=== PATIENT | female | born 1945 | race Caucasian/White ===

== ENCOUNTER → 2016-09-13 | Outpatient (CLI) | payer MEDICARE ==
[~2016-09-13] VITALS: Ht 165.1 cm; Wt 75.7 kg
[~2016-09-13] MED LIST: /DULO30CA OR; /MOXI40TA OR; ADVI200T PO; ASPI81TA3 OR; ASPI81TA85 PO; BENA25TA9 PO; CALC12502 OR; CALCIUM VITAMIN D PO; CINN500C9 PO; CITRTAB18 PO; COLC1TAB5 PO; CRES20TA OR; CRES20TA PO; DEPA250T2 PO; DEPA250T3 OR; GLIP5TAB8 PO; IBAN150T5 PO; IBUP80TA PO; Januvia PO; LANS30CA PO; LEFL1TAB4 PO; LEVA750T PO; LEVO75TA4 PO; LIDOCAINE 2% INJ 100 MG/5 ML SDV (FOR ANES.) As Ordered ONE; LITH300T2 PO; MELA10CA PO; MET; METF500T PO; MULTTAB6 PO; Metformin; NS 1,000 ML IV SCH; PANT40TA2 PO; PRED50TA PO; PREVACID PO; PROPOFOL 200 MG/20 ML VIAL As Ordered ONE; SINE25TA6 PO; SYNT50TA PO; THYROX; TYLE500T78 PO; Thyroxine PO; VENL75TA2 PO; VICO5TAB OR; VITA200016 PO; VITA500T OR; Vesicare PO; fentaNYL 100 MCG/2 ML INJECTION (J3010) As Ordered ONE
--- NOTE | 2016-09-13 10:27 | ROOR ---
Patient Name: Jayla Barrera Procedure Date: 09/13/2016 10:14 AM Date of : 1945 Age: 71 Room: OP Gender: Female Note Status: Finalized Procedure: Upper GI endoscopy Indications: Abdominal pain, Abnormal CT of the GI tract, Nausea Providers: Cristi MCELROY MD Referring MD: YESENIA PRESTON MD Requesting Provider: Medicines: Monitored Anesthesia Care Complications: No immediate complications. Procedure: Pre-Anesthesia Assessment: - The heart rate, respiratory rate, oxygen saturations, blood pressure, adequacy of pulmonary ventilation, and response to care were monitored throughout the procedure. The Endoscope was introduced through the mouth, and advanced to the third part of duodenum. The upper GI endoscopy was accomplished without difficulty. The patient tolerated the procedure well. Findings: The esophagus was normal. The stomach was normal. The examined duodenum was normal. Impression: - Normal esophagus. - Normal stomach. - Normal examined duodenum. - No specimens collected. Recommendation: - Follow an antireflux regimen. - Continue present medications. - Observe patient's clinical course. Cristi Mcelroy MD Cristi MCELROY MD 09/13/2016 10:27:32 AM This report has been signed electronically. Number of Addenda: 0 Note Initiated On: 09/13/2016 10:14 AM Estimated Blood Loss: Estimated blood loss: none.
--- NOTE | 2016-09-13 10:49 | ROOR ---
Patient Name: Jayla Barrera Procedure Date: 09/13/2016 10:16 AM Date of : 1945 Age: 71 Room: [facility] Gender: Female Note Status: Finalized Procedure: Colonoscopy Indications: Generalized abdominal pain, Change in bowel habits, Weight loss Providers: Cristi MCELROY MD Referring MD: YESENIA PRESTON MD Requesting Provider: Medicines: Monitored Anesthesia Care Complications: No immediate complications. Procedure: Pre-Anesthesia Assessment: - The heart rate, respiratory rate, oxygen saturations, blood pressure, adequacy of pulmonary ventilation, and response to care were monitored throughout the procedure. The Colonoscope was introduced through the anus and advanced to 5 cm into the ileum. The colonoscopy was performed without difficulty. The patient tolerated the procedure well. The quality of the bowel preparation was good. Findings: The perianal and digital rectal examinations were normal. (Exam: Complete, Prep: Good or Excellent.) The terminal ileum appeared normal. Five sessile polyps were found in the descending colon and at the splenic flexure. The polyps were diminutive in size. These polyps were removed with a cold snare. Resection and retrieval were complete. The exam was otherwise without abnormality. Impression: - (Exam: Complete, Prep: Good or Excellent.) - The examined portion of the ileum was normal. - Five diminutive polyps in the descending colon and at the splenic flexure, removed with a cold snare. Resected and retrieved. - The examination of the colon was otherwise normal. Recommendation: - Telephone endoscopist for pathology results in 2 weeks. - If the pathology report reveals adenomatous tissue, then repeat the colonoscopy for surveillance in 3 years. Cristi Mcelroy MD Cristi MCELROY MD 09/13/2016 10:48:56 AM This report has been signed electronically. Number of Addenda: 0 Note Initiated On: 09/13/2016 10:16 AM Estimated Blood Loss: Estimated blood loss: none.
[2016-09-13 11:12] VITALS: BP 116/6
== END | disposition home or self-care (01) ==
LOC: M OPP 09:19
PROVIDERS: ATTEND Internal Medicine Gastroenterology
DX: R10.9 Unspecified abdominal pain (principal); D12.4 Benign neoplasm of descending colon; D12.3 Benign neoplasm of transverse colon; R93.3 Abnormal findings on diagnostic imaging of other parts of digestive tract; R11.0 Nausea; E11.9 Type 2 diabetes mellitus without complications; K21.9 Gastro-esophageal reflux disease without esophagitis; G20 Parkinson's disease; M19.90 Unspecified osteoarthritis, unspecified site; E03.9 Hypothyroidism, unspecified; Z88.0 Allergy status to penicillin; Z88.5 Allergy status to narcotic agent; Z88.8 Allergy status to other drugs, medicaments and biological substances
CPT/HCPCS: 43235; 45385; 88305; J3010

== ENCOUNTER → 2016-10-03 | Outpatient (REF) | payer MEDICARE, BC ==
[~2016-10-03] MED LIST changes: -LIDOCAINE 2% INJ 100 MG/5 ML SDV (FOR ANES.) As Ordered ONE; -NS 1,000 ML IV SCH; -PROPOFOL 200 MG/20 ML VIAL As Ordered ONE; -fentaNYL 100 MCG/2 ML INJECTION (J3010) As Ordered ONE
[2016-10-03 16:40] LABS: ALBUMIN 3.9 GM/DL (3.2-5.2); ALKALINE PHOSPHATASE 35 U/L (45-117); ALT/SGPT 21 U/L (12-78); AST/SGOT 13 U/L (15-37); BLOOD UREA NITROGEN 9 MG/DL (7-18); CREATININE FOR GFR 0.81 MG/DL (0.55-1.02); GAMMA GLUTAMYLTRANSPEPTIDASE 34 U/L (5-55); GLOMERULAR FILTRATION RATE > 60.0 (>45)
[2016-10-03 16:45] LABS: BASO # 0.1 K/mm3 (0.0-0.2); BASO % 0.8 % (0.0-1.0); EOS # 0.6 K/mm3 (0.0-0.50); LYMPH # 2.6 K/mm3 (1.5-4.5); LYMPH % 28.1 % (24.0-44.0); MEAN CORPUSCULAR HEMOGLOBIN 28.9 pg (27.0-33.0); MEAN CORPUSCULAR HGB CONC 30.7 g/dl (32.0-36.5); MEAN CORPUSCULAR VOLUME 94.4 fl (80.0-96.0); MONO # 0.6 K/mm3 (0.0-0.8); MONO % 6.6 % (0.0-5.0); NEUTROPHILS # 5.2 K/mm3 (1.8-7.7); NEUTROPHILS % 56.8 % (36.0-66.0); RED CELL DISTRIBUTION WIDTH 13.5 % (11.5-14.5); WHITE BLOOD COUNT 9.2 K/mm3 (4.0-10.0)
[2016-10-03 18:46] LABS: STABLE ALKPHOS < 10 U/L
== END ==
LOC: M LABDRAW1 15:24
PROVIDERS: ATTEND Physician Assistant Medical
DX: L40.59 Other psoriatic arthropathy (principal); M54.5 Low back pain; Z51.81 Encounter for therapeutic drug level monitoring; Z79.899 Other long term (current) drug therapy; F33.2 Major depressive disorder, recurrent severe without psychotic features

== ENCOUNTER → 2016-10-15 | Outpatient (REF) | payer MEDICARE, BC ==
[2016-10-15 14:37] LABS: ALBUMIN/GLOBULIN RATIO 1.38 (1.00-1.93); ALKALINE PHOSPHATASE 40 U/L (45-117); ALT/SGPT 33 U/L (12-78); AST/SGOT 22 U/L (15-37); BILIRUBIN,DIRECT < 0.1 MG/DL (0.0-0.2); BILIRUBIN,TOTAL 0.3 MG/DL (0.2-1.0); TOTAL PROTEIN 6.9 GM/DL (6.4-8.2)
== END ==
LOC: M LABDRAW1 14:02
PROVIDERS: ATTEND Psychiatry & Neurology Psychiatry
DX: Z79.899 Other long term (current) drug therapy (principal); Z51.81 Encounter for therapeutic drug level monitoring

== ENCOUNTER 2016-12-17 13:30 | Emergency (ER) | payer BC, MEDICARE, OTHER ==
[~2016-12-17] VITALS: Ht 165.1 cm; Wt 75.7 kg
[2016-12-17] MEDS ORDERED: NORCO, ANEXSIA 5/325MG TABLET (HYDROcodone/ACETAMINOPHEN) PO ONE (13:45)
[2016-12-17] MEDS ORDERED: PERCOCET 5MG/325MG TAB PO ONE (14:00)
--- NOTE | 2016-12-17 14:52 | REP ---
CT LUMBAR SPINE WITHOUT CONTRAST: HISTORY: Trauma. COMPARISON: MR 05/28/2014. There is no disc bulge or herniation at the L1-2 level. The L1 nerves exit the neural foramina without compression. A diffuse disc bulge is present at the L2-3 level. There is minimal compression of the thecal sac. The L2 nerves exit the neural foramina without compression. A diffuse disc bulge is present at the L3-4 level. There is minimal compression of the thecal sac. There is hypertrophy of the posterior articulating facets. The L3 nerves exit the neural foramina without compression. A diffuse disc bulge is present at the L4-5 level. There is hypertrophy of the ligamenta flava and posterior articulating facets. These findings produce mild central canal stenosis. The L4 nerves exit the neural foramina without compression. A diffuse disc bulge is present at the L5-S1 level. This abuts the thecal sac. There is hypertrophy of the posterior articulating facets. The L5 nerves exit the neural foramina without compression. The L4-5 intervertebral disc is decreased in height consistent with disc degeneration. The vertebral bodies are normal in height. There is a nondisplaced fracture of the L4 spinous process. IMPRESSION: 1. Diffuse disc bulges at the L2-3 and L3-4 levels with minimal thecal sac compression. 2. Mild central canal stenosis at the L4-5 level secondary to disc bulge, ligamentous, and facet hypertrophy. 3. Diffuse disc bulge at the L5-S1 level. This abuts the thecal sac. 4. Nondisplaced fracture of the L4 spinous process. Signed by David Zarco MD 12/17/2016 02:54 P
--- NOTE | 2016-12-17 14:56 | REP ---
Pelvis/bilateral hips: Five views. History: Injury in a fall. Findings: The bony pelvic ring appears intact. No pelvic or sacral fracture is seen. AP and frog-leg views of each hip show smooth rounded femoral heads and intact hip joint spaces. No proximal femur or hip fracture is seen. There is peritrochanteric calcification and spurring of the greater trochanters bilaterally consistent with calcific tendonitis or bursitis. Impression: No fracture seen. Signed by José Luis Leroy MD 12/17/2016 06:27 P
[2016-12-17] MEDS ORDERED: PERC5TAB6 PO (15:04)
[2016-12-17 15:12] VITALS: BP 135/76
== END 2016-12-17 15:29 | disposition home or self-care (01) ==
LOC: EDBD 13:30 → M ED 15:10
DX: S32.048A Other fracture of fourth lumbar vertebra, initial encounter for closed fracture (principal); S70.01XA Contusion of right hip, initial encounter; S70.02XA Contusion of left hip, initial encounter; W01.0XXA Fall on same level from slipping, tripping and stumbling without subsequent striking against object, initial encounter; Y92.099 Unspecified place in other non-institutional residence as the place of occurrence of the external cause; Y93.9 Activity, unspecified; Y99.9 Unspecified external cause status; M51.26 Other intervertebral disc displacement, lumbar region; M51.27 Other intervertebral disc displacement, lumbosacral region; I51.9 Heart disease, unspecified; Z79.82 Long term (current) use of aspirin; Z79.899 Other long term (current) drug therapy; Z88.6 Allergy status to analgesic agent; Z88.1 Allergy status to other antibiotic agents; Z88.5 Allergy status to narcotic agent; Z88.8 Allergy status to other drugs, medicaments and biological substances; Z88.0 Allergy status to penicillin; Z88.2 Allergy status to sulfonamides

== ENCOUNTER 2016-12-22 09:04 | Inpatient (IN) | payer BC, MEDICARE, OTHER ==
[~2016-12-22] VITALS: Ht 165.1 cm; Wt 76.0 kg
[2016-12-22] MEDS: lamoTRIgine 100MG TAB PO SCH (09:00)
[~2016-12-22 09:04] MED LIST changes: +PERC5TAB6 PO
[2016-12-22] MEDS ORDERED: PREV30CA11 PO (09:40)
[2016-12-22] MEDS ORDERED: LAMO100T (09:40)
[2016-12-22] MEDS ORDERED: LAMO25TA2 (09:40)
[2016-12-22] MEDS ORDERED: VIIB10TA (09:40)
[2016-12-22] MEDS ORDERED: KLON0.5T (09:40)
[2016-12-22] MEDS ORDERED: TOLT1CAP (09:40)
[2016-12-22] MEDS ORDERED: MORPHINE 4 MG/ML 1ML SYRINGE IV ONE (09:45)
[2016-12-22 10:47] LABS: BASO % 0.4 % (0.0-1.0); EOS # 0.4 K/mm3 (0.0-0.50); EOS % 5.4 % (0.0-3.0); LARGE UNSTAINED CELL # 0.1 K/mm3 (0.0-0.4); LARGE UNSTAINED CELL % 1.9 % (0.0-4.0); LYMPH # 1.7 K/mm3 (1.5-4.5); LYMPH % 21.7 % (24.0-44.0); MEAN CORPUSCULAR HEMOGLOBIN 28.7 pg (27.0-33.0); MEAN CORPUSCULAR VOLUME 92.7 fl (80.0-96.0); MONO # 0.6 K/mm3 (0.0-0.8); MONO % 7.4 % (0.0-5.0); NEUTROPHILS # 4.7 K/mm3 (1.8-7.7); NEUTROPHILS % 63.2 % (36.0-66.0); PLATELET COUNT, AUTOMATED 289 k/mm3 (150-450); RED CELL DISTRIBUTION WIDTH 13.8 % (11.5-14.5); WHITE BLOOD COUNT 7.4 K/mm3 (4.0-10.0)
[2016-12-22 11:18] LABS: ALBUMIN 3.2 GM/DL (3.2-5.2); ALBUMIN/GLOBULIN RATIO 0.89 (1.00-1.93); ALKALINE PHOSPHATASE 56 U/L (45-117); ALT/SGPT 22 U/L (12-78); ANION GAP 7 MEQ/L (8-16); AST/SGOT 16 U/L (15-37); BILIRUBIN,DIRECT < 0.1 MG/DL (0.0-0.2); BILIRUBIN,TOTAL 0.2 MG/DL (0.2-1.0); BLOOD UREA NITROGEN 13 MG/DL (7-18); CALCIUM LEVEL 8.1 MG/DL (8.8-10.2); CARBON DIOXIDE LEVEL 27 MEQ/L (21-32); CHLORIDE LEVEL 106 MEQ/L (98-107); CREATININE FOR GFR 0.78 MG/DL (0.55-1.02); GLOMERULAR FILTRATION RATE > 60.0 (>45); GLUCOSE, FASTING 101 MG/DL (80-110); POTASSIUM SERUM 3.8 MEQ/L (3.5-5.1); SODIUM LEVEL 140 MEQ/L (136-145); TOTAL PROTEIN 6.8 GM/DL (6.4-8.2)
[2016-12-22] MEDS ORDERED: ISOVUE-370 76% 100ML VIAL (Q9967) As Ordered ONE (11:39)
[2016-12-22 12:01] LABS: LITHIUM LEVEL < 0.20 MEQ/L (0.60-1.20)
--- NOTE | 2016-12-22 12:21 | REP ---
CT of the abdomen and pelvis with IV contrast. There is opaque material. Some of the small bowel loops. This could be a oral contrast and could merely be ingested material. Comparison 08/17/2016. There is a tiny parenchymal scar in the deep posterior sulcus of the right lung, unchanged from 12/01/2011. The hepatic parenchyma is diffusely less dense than the spleen compatible with hepato steatosis. The liver is otherwise unremarkable. The gallbladder, pancreas and spleen are unremarkable. The adrenals, kidneys and abdominal aorta are unremarkable. There is no bowel obstruction. The mesentery is unremarkable. Pelvis: The appendix is not identified. There is no pericecal inflammation. The uterus and adnexa are unremarkable. The bladder is unremarkable. There is no adenopathy or ascites. The pelvic bowel loops are unremarkable. Impression: Essentially negative CT study of the abdomen and pelvis. Signed by Willie Redd MD 12/22/2016 12:13 P
[2016-12-22] MEDS ORDERED: MAGNESIUM CITRATE 300 ML BTL PO ONE ×2 (12:30→14:00)
[2016-12-22] MEDS ORDERED: KETOROLAC 30 MG/ML VIAL (J1885) IV ONE (12:30)
[2016-12-22] MEDS ORDERED: clonazePAM 0.5 MG TAB PO ONE (14:00)
[2016-12-22] MEDS ORDERED: TOLT1CAP PO (16:00)
[2016-12-22] MEDS ORDERED: DIVA250T PO (16:00)
[2016-12-22] MEDS ORDERED: VIIB10TA PO (16:00)
[2016-12-22] MEDS ORDERED: ACETAMINOPHEN TAB 650MG DOSE (2X325MG) PO PRN (16:00)
[2016-12-22] MEDS ORDERED: GLIP-162 PO (16:00)
[2016-12-22] MEDS ORDERED: LAMO100T PO (16:00)
[2016-12-22] MEDS ORDERED: CLON0.5T PO (16:01)
[2016-12-22] MEDS ORDERED: METO25TA74 PO (16:02)
[2016-12-22] MEDS ORDERED: TRAZ25TA PO (16:02)
[2016-12-22] MEDS ORDERED: VITMTA PO (16:04)
[2016-12-22] MEDS ORDERED: GLUCOSE 4 GM CHEW TABLET PO PRN (16:15)
[2016-12-22] MEDS ORDERED: DEXTROSE 50% 50 ML SYRINGE IV PRN (16:15)
[2016-12-22] MEDS ORDERED: GLUCAGON FOR INJ 1 MG VIAL (J1610) SC PRN (16:15)
--- NOTE | 2016-12-22 17:20 | REPUSA ---
CT of the lumbar spine without contrast Clinical history: Pain, recent fracture. Technique: Multiple axial CT images were obtained through the lumbar spine without administration of contrast. Coronal and sagittal 3-D reconstructed images were also obtained. Comparison: 12/17/2016. Findings: The lumbar vertebral bodies are in satisfactory positioning and alignment. There is a subacute trans verse fracture of the spinous process of L4. There is a subacute anterior compression abnormality of T12, with minimal loss of vertebral body height. This is stable since the prior study. No other acu te fractures or dislocations are demonstrated. Intervertebral disc spaces are well-maintained. There is no evidence of facet subluxation. The neural foramen appear grossly patent. The spinal canal demon strates normal caliber and contour without evidence of spinal stenosis. The surrounding soft tissues are within normal limits. Impression: 1. Subacute mild anterior compression fracture of T12. 2. Sub acute nondisplaced fracture of the spinous process of L4. 3. No acute findings. Grossly stable examination.
[2016-12-22] MEDS: HumaLOG INSULIN (NovoLOG) PER UNIT SC SCH ×2 (17:30→21:00)
[2016-12-22] MEDS ORDERED: MIRALAX *UNIT DOSE* 17GM PACKET PO PRN (17:30)
[2016-12-22 18:00] VITALS: BP 137/79
[2016-12-22] MEDS: MORPHINE 2 MG/ML 1ML SYRINGE IV PRN (18:20)
--- NOTE | 2016-12-22 18:24 | HPE ---
DATE OF ADMISSION: 12/22/2016 PRIMARY CARE PROVIDER: Dr. Ian Mccall. NEUROLOGIST: Dr. Armstrong. PSYCHIATRIST: Dr. Cunha. CHIEF COMPLAINT: Back pain. HISTORY OF PRESENT ILLNESS: Ms. Barrera is a pleasant 71-year-old female with history of Parkinson's disease, psoriatic arthritis, who presented to the emergency department (ED) today with complaint of low back pain. Pain started five days ago after sustaining a fall at home. She was doing laundry in her bathroom and because of her baseline tremor from her Parkinson's, she turned around, lost balance and fell back into her wooden chair. Immediately experience excruciating low back pain. Denies any chest pain, palpitations, dizziness, lightheadedness, syncopal episode. She was then brought into the emergency room (ER) on 12/17/2016. At that time, CT lumbar spine showed nondisplaced fracture of L4 spinous process. She was then sent home with pain medication. States that since her discharge from the ER, her pain was relatively tolerable with pain control and was able to ambulate without significant distress until approximately two days ago when her pain worsened. However, this morning her pain was particularly severe to the point that she had difficulty getting out of bed. Because of worsening pain, she was brought in for further evaluation. Denied any bowel or urinary incontinence, bowel or urinary retention, vaginal or any paresthesia. Reports weakness which is chronic due to her baseline Parkinson's disease. Also admits that since being on narcotics, she feels more constipated. Has gone approximately 3-4 days without bowel movement and took some milk of magnesia yesterday. Since taking her stool softener, her bowel movement has increased, though she still feels constipated and bloated to her abdomen. In the ER, was given ketorolac times one, magnesium citrate, clonazepam, morphine 4 mg times one. PAST MEDICAL HISTORY: 1. Parkinson's disease. 2. Type 2 diabetes. 3. Hypothyroidism. 4. Gastroesophageal reflux disease (GERD). 5. Obstructive sleep apnea (GUME) not compliant with continuous positive airway pressure (CPAP) for the last three years. 6. Psoriatic arthritis. 7. Depression. 8. Hyperlipidemia. 9. Hypertension. 10. Anxiety 11. Panic attacks. 12. Tubular adenoma, September 2016. 13. Bipolar disorder. PAST SURGICAL HISTORY: 1. Right ankle surgery. 2. Right knee surgery. 3. Right arm surgery. 4. Colonoscopy September 2016. ALLERGIES: 1. PENICILLIN - anaphylaxis. 2. DARVON. 3. SULFA. 4. HYDROCODONE. 5. PERCODAN. 6. TRAMADOL. 7. CODEINE, though the patient did receive morphine and Percocet with recent visits without any adverse reaction. HOME MEDICATIONS: - aspirin 81 mg by mouth at bedtime - clonazepam 0.5 mg by mouth twice a day - Benadryl 50 mg by mouth at bedtime - Depakote 500 mg by mouth twice a day - glipizide 5 mg by mouth daily - lamotrigine 100 mg by mouth daily - Prevacid 30 mg by mouth at bedtime - leflunomide 20 mg by mouth daily - Synthroid 75 mcg by mouth daily - melatonin 10 mg at bedtime - metformin 1000 mg by mouth twice a day - metoprolol succinate ER 12.5 mg at bedtime - multivitamin - Percocet 5/325 mg two tablets every six hours as needed - Crestor 20 mg by mouth daily - tolterodine tartrate 4 mg by mouth twice a day - trazodone 25 mg by mouth at bedtime - Viibryd 10 mg by mouth daily - vitamin D 2000 units by mouth daily FAMILY HISTORY: Father at 45 from a myocardial infarction ([place]). Mother is alive with Alzheimer's disease. SOCIAL HISTORY: She is a nonsmoker. Does not drink alcohol. No drug use. Currently lives at home with her . Lifetime travel includes [place], [place], and [place]. 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 No exposure to tuberculosis or asbestos that she is aware of. Has one dog at home. REVIEW OF SYSTEMS: CONSTITUTIONAL: Denies fevers, chills, rigors, weight changes. HEENT: Denies headaches, lightheadedness, dizziness, blurry vision, difficulty with speech and swallow. CARDIOVASCULAR: Denies chest pain, paroxysmal nocturnal dyspnea, pillow orthopnea, lower extremity edema. PULMONARY: Denies shortness of breath, productive cough, hemoptysis. GASTROINTESTINAL: Denies hematochezia, melena, or hematemesis, nausea, vomiting. Positive for constipation as mentioned. GENITOURINARY: No dysuria, urinary urgency, frequency or hematuria. No bladder incontinence. MUSCULOSKELETAL: Positive for back pain as mentioned above. NEUROLOGICAL: No paralysis, paresthesia, headaches. No syncopal episode. Has Parkinson's. ENDOCRINE: Negative for diabetes, or thyroid disease. LYMPHATICS: No lumps, bumps, or swelling anywhere in neck, axilla, or groin. HEMATOLOGY: No abnormal bleeding or bruising. PSYCHIATRIC: Positive for bipolar disorder, anxiety, depression. RHEUMATOLOGIC: Positive for arthritis. PHYSICAL EXAMINATION: VITAL SIGNS: Blood pressure 136/65, heart rate 96, temperature 98.3, respiratory rate 16, pulse oximetry 94% on room air. GENERAL: Lying in bed, comfortable, no acute distress, appears pale but per patient and , this is her normal skin tone. HENT: Normocephalic, atraumatic. Moist oral mucosa. Good dentition considering age. No thrush or lesions appreciated. Nasal septum midline. EYES: Extraocular movement intact. Pupils equal and reactive to light. NECK: Supple. Trachea midline. No jugular venous distention (JVD). No thyromegaly or lymphadenopathy palpated. CHEST: Symmetric chest rise. No accessory muscle use. Breath sounds were diminished but clear bilaterally. HEART: Regular rate and rhythm with normal S1, S2. Did not appreciate murmurs, rubs, or gallops. ABDOMEN: Protuberant, mildly distended, diffusely tender to palpation, most significant in her left lower quadrant. No guarding, no rebound, no peritoneal sign. Bowel sounds are present and normoactive. Could not appreciate organomegaly secondary to body habitus and protuberant abdomen. GENITOURINARY: Has good rectal tone. No obvious hemorrhoids, mass or lesions appreciated. EXTREMITIES: No pedal edema. Pedal pulses present bilaterally. SKIN: No obvious areas of cyanotic mottling or erythematous changes. NEUROLOGIC: Strength 5/5 in all extremities. Sensory intact. Negative Babinski sign. Did not assess gait. Cranial nerves II through XII intact. She did have tremor on examination. PSYCHIATRIC: Pleasant, cooperative. Normal affect. LABORATORY DATA: WBC 7.4, hemoglobin 12, hematocrit 38.7, platelets 289. Sodium 140, potassium 3.8, chloride 106, carbon dioxide 27, BUN 13, creatinine 0.78, glucose 101, calcium 8.1. Liver profile normal, lipase normal. Valproic acid level 27. Myra level less than 0.2. Lamotrigine level pending. MICROBIOLOGY: Urine culture pending. Urinalysis trace ketones, 3+ leukocyte esterase, 20 WBC. IMAGING: CT abdomen and pelvis reports no bowel obstruction. Mesentery unremarkable. Essentially negative CT abdomen and pelvis. IMPRESSION AND PLAN: Ms. Barrera is a pleasant 71-year-old female with past medical history of Parkinson's disease, recently sustained mechanical fall at home, previously found to have nondisplaced L4 spinous fracture who presented to the ED today with worsening back pain. 1. Low back pain. Likely secondary to fracture that was found on previous CT. In review of prior visit, she did have CT lumbar spine without contrast performed on 12/17/2016; at that time showed nondisplaced fracture of L4 spinous process. The patient will be admitted for further management of her pain. The patient will be placed on Tylenol, oxycodone, and morphine as needed. Though there is an allergy to codeine, she previously received Percocet and also morphine without any adverse effect. Consult physical therapy. Because of her worsening pain, we have repeated CT lumbar spine without contrast to reevaluate for any change to her previous nondisplaced fracture of L4. If her symptoms do not improve with our current management, we will consider consulting pain management for assistance. At this time, she has no concerning signs. We will also add calcitonin spray as it might help providing analgesic effect to her pain. 2. Hypertension. Continue Toprol XL 12.5 mg at bedtime. 3. Hyperlipidemia. Continue Crestor 20 mg daily. 4. Type 2 diabetes. Hold home oral hypoglycemics. Will start insulin sliding scale while inpatient due to risk of hypoglycemia. 5. Constipation. The patient will be placed on a bowel regimen as she will be on multiple narcotics for her back pain. 6. Hypothyroidism. Continue levothyroxine. 7. Anxiety/depression. Continue home dose clonazepam and Viibryd. 8. Bipolar disorder. Continue home dose lamotrigine, Depakote. 9. Arthritis. Continue leflunomide home medication. 10. History of overactive bladder. Continue home dose tolterodine. 11. Gastroesophageal reflux disease (GERD). Continue home does Prevacid. 12. Insomnia. Continue home dose trazodone as needed. She can take her home does melatonin. 13. Vitamin D deficiency. Continue vitamin D supplementation. 14. GUME. Has not used her CPAP machine for the last 2-3 years. Will be placed on GUME protocol. 15. Deep venous thrombosis (DVT) prophylaxis. Sequential compression devices (SCDs), thromboembolism deterrent stockings (TEDs) and heparin. DISPOSITION: Due to the patient's condition, we expect her stay to be greater than two midnights. My preceptor for this patient encounter was Dr. Juan Grover. The preceptor was physically present in the building during the encounter and was fully available as needed. All aspects of the patient interview, examination, medical decision making process, and medical care plan development were reviewed and approved by the preceptor. The preceptor is aware and concurs with the plan as stated in the body of this note and will attest to such by his/her co-signature. JOHN
[2016-12-22] MEDS: MULTIVITAMINS/MINERALS THERAP 1 TAB PO SCH (21:34)
[2016-12-22] MEDS: DIVALPROEX 500 MG TAB PO SCH (21:34)
[2016-12-22] MEDS: clonazePAM 0.5 MG TAB PO SCH (21:35)
[2016-12-22] MEDS: PANTOPRAZOLE 40MG TAB (PROTONIX) PO SCH (21:35)
[2016-12-22] MEDS: ASPIRIN 81 MG ENTERIC TAB PO SCH (21:35)
[2016-12-22] MEDS: SENNA 8.6 MG TAB (SENOKOT) PO SCH (21:35)
[2016-12-22] MEDS: TOLTERODINE TARTRATE 2 MG LA CAP (DETROL LA) PO SCH (21:35)
[2016-12-22] MEDS: SENOKOT S TAB PO SCH (21:36)
[2016-12-22] MEDS: METOPROLOL SUCC *XL* 12.5MG PER 1/2 TAB (TopROL *XL*) PO SCH (21:37)
[2016-12-22] MEDS: HEPARIN SOD (PORCINE) 5000 UNITS/ML VIAL SC SCH (21:42)
[2016-12-22] MEDS: traZODone 25MG PER 1/2 TABLET PO PRN (21:42)
[2016-12-22] MEDS: oxyCODONE 5MG TAB PO PRN (21:43)
[2016-12-22 22:00] VITALS: BP 144/78
[2016-12-23] MEDS: HEPARIN SOD (PORCINE) 5000 UNITS/ML VIAL SC SCH ×3 (05:26→22:08)
[2016-12-23] MEDS: LEVOTHYROXINE 0.075 MG TAB (75 MCG) PO SCH (05:26)
[2016-12-23] MEDS: MORPHINE 2 MG/ML 1ML SYRINGE IV PRN ×6 (05:27→22:12)
[2016-12-23 06:00] VITALS: BP 154/83
[2016-12-23 06:03] LABS: MEAN CORPUSCULAR HEMOGLOBIN 29.9 pg (27.0-33.0); MEAN CORPUSCULAR HGB CONC 32.1 g/dl (32.0-36.5); MEAN CORPUSCULAR VOLUME 93.1 fl (80.0-96.0); RED CELL DISTRIBUTION WIDTH 13.7 % (11.5-14.5); WHITE BLOOD COUNT 6.9 K/mm3 (4.0-10.0)
[2016-12-23 06:28] LABS: ALBUMIN 3.2 GM/DL (3.2-5.2); ANION GAP 8 MEQ/L (8-16); BLOOD UREA NITROGEN 16 MG/DL (7-18); CARBON DIOXIDE LEVEL 29 MEQ/L (21-32); CHLORIDE LEVEL 106 MEQ/L (98-107); GLOMERULAR FILTRATION RATE > 60.0 (>45); GLUCOSE, FASTING 83 MG/DL (80-110); PHOSPHORUS LEVEL 3.6 MG/DL (2.5-4.9); POTASSIUM SERUM 4.1 MEQ/L (3.5-5.1); SODIUM LEVEL 143 MEQ/L (136-145)
[2016-12-23] MEDS: HumaLOG INSULIN (NovoLOG) PER UNIT SC SCH ×4 (07:30→21:00)
[2016-12-23] MEDS: oxyCODONE 5MG TAB PO PRN ×2 (07:55→13:16)
[2016-12-23] MEDS: ROSUVASTATIN 10 MG TAB (CRESTOR) PO SCH (08:08)
[2016-12-23] MEDS: TOLTERODINE TARTRATE 2 MG LA CAP (DETROL LA) PO SCH ×2 (08:08→22:11)
[2016-12-23] MEDS: DIVALPROEX 500 MG TAB PO SCH ×2 (08:08→22:10)
[2016-12-23] MEDS: clonazePAM 0.5 MG TAB PO SCH ×2 (08:09→22:10)
[2016-12-23] MEDS: SENOKOT S TAB PO SCH ×2 (08:09→22:10)
[2016-12-23] MEDS: SENNA 8.6 MG TAB (SENOKOT) PO SCH ×2 (08:09→22:09)
[2016-12-23] MEDS: MOM 30ML SUSPENSION UDC PO SCH (08:10)
[2016-12-23] MEDS: VITAMIN D 1,000 INTERNATIONAL UNITS TABLET PO SCH (08:10)
[2016-12-23] MEDS: lamoTRIgine 100MG TAB PO SCH (08:10)
[2016-12-23] MEDS: CALCITONIN NASAL SPRAY 3.7 ML BTL SCH (08:11)
[2016-12-23] MEDS ORDERED: LORazepam 2 MG/ML VIAL (J2060) IV ONE (13:00)
--- NOTE | 2016-12-23 13:17 | IPNPDOC ---
Text Note Date of Service The patient was seen on 12/23/16. NOTE Subjective: Patient states that he still has lumbar pain. No changes in bladder or bowel. No new weakness. No sensory changes. Objective: Vitals: (see below) General: No acute distress, laying comfortably in bed. HEENT: Moist mucous membranes. Neck: No JVD or lymphadenopathy Cardiac: RRR, No murmurs Pulm: Clear to auscultation b/l. No wheezing, rhonchi Abd: NT/ND + BS Ext: No edema or cyanosis. 5-5 strength bilateral lower shortness. Sensation intact. Negative Babinski bilaterally. Labs (see below) Images: Lumbar CT 12/22/16 Findings: The lumbar vertebral bodies are in satisfactory positioning and alignment. There is a subacute transverse fracture of the spinous process of L4. There is a subacute anterior compression abnormality of T12, with minimal loss of vertebral body height. This is stable since the prior study. No other acute fractures or dislocations are demonstrated. Intervertebral disc spaces are well- maintained. There is no evidence of facet subluxation. The neural foramen appear grossly patent. The spinal canal demonstrates normal caliber and contour without evidence of spinal stenosis. The surrounding soft tissues are within normal limits. Impression: 1. Subacute mild anterior compression fracture of T12. 2. Sub acute nondisplaced fracture of the spinous process of L4. 3. No acute findings. Grossly stable examination. CT Abd/pelvis 12/22/16 Impression:Essentially negative CT study of the abdomen and pelvis. Assessment/Plan 1. Subacute anterior compression fracture of T12 as well as subacute nondisplaced fracture spinous processes of L4- status post mechanical fall. We' ll place patient abdominal binder. Neuro checks. We will obtain thoracic and lumbar MRI, and discuss results with ortho. Pain control. Physical therapy. 2. Hypertension- controlled continue home meds 3. Diabetes mellitus- oral agents on hold. On SSI 4. Hyperlipidemia -on statin 5. Constipation improved. Likely secondary to necrotic. 6. Hypothyroidism- on Synthroid 7. Anxiety/depression- on clonazepam 8. Bipolar disorder- continue home meds 9. Rheumatoid arthritis- on the leflunomide 10. GERD- on PPI 11. Insomnia- on trazodone as needed 12. Vitamin D- on replacement DVT prophy: SCDs/heparin subcutaneous VS,Fishbone, I+O VS, Fishbone, I+O Laboratory Tests 12/23/16 05:11 Anion Gap 8, Red Blood Count 4.16, Mean Corpuscular Volume 93.1, Mean Corpuscular Hemoglobin 29.9, Mean Corpuscular Hemoglobin Concent 32.1, Red Cell Distribution Width 13.7 Vital Signs Date Time Temp Pulse Resp B/P Pulse Ox O2 Delivery O2 Flow Rate FiO2 12/23/16 11:53 16 12/23/16 06:00 97.8 90 154/83 90 Room Air I&O- Last 24 Hours up to 6 AM 12/23/16 06:00 Intake Total 480 ml Output Total 0 ml Balance 480 ml MARIO PATRICK MD Dec 23, 2016 13:17
[2016-12-23 14:00] VITALS: BP 158/87
[2016-12-23 22:00] VITALS: BP 145/82
[2016-12-23] MEDS: ASPIRIN 81 MG ENTERIC TAB PO SCH (22:10)
[2016-12-23] MEDS: METOPROLOL SUCC *XL* 12.5MG PER 1/2 TAB (TopROL *XL*) PO SCH (22:10)
[2016-12-23] MEDS: MULTIVITAMINS/MINERALS THERAP 1 TAB PO SCH (22:10)
[2016-12-23] MEDS: PANTOPRAZOLE 40MG TAB (PROTONIX) PO SCH (22:10)
[2016-12-24] MEDS: MORPHINE 2 MG/ML 1ML SYRINGE IV PRN ×3 (00:36→10:37)
[2016-12-24] MEDS: oxyCODONE 5MG TAB PO PRN ×3 (01:47→18:01)
[2016-12-24] MEDS: LEVOTHYROXINE 0.075 MG TAB (75 MCG) PO SCH (05:54)
[2016-12-24] MEDS: HEPARIN SOD (PORCINE) 5000 UNITS/ML VIAL SC SCH ×3 (05:55→21:14)
[2016-12-24 06:00] VITALS: BP 162/85
[2016-12-24 06:56] LABS: MEAN CORPUSCULAR HGB CONC 30.8 g/dl (32.0-36.5); MEAN CORPUSCULAR VOLUME 94.2 fl (80.0-96.0); RED CELL DISTRIBUTION WIDTH 13.7 % (11.5-14.5); WHITE BLOOD COUNT 7.3 K/mm3 (4.0-10.0)
[2016-12-24] MEDS ORDERED: GASTROGRAFIN SOLUTION 30ML PO ONE (07:00)
[2016-12-24 07:05] LABS: ALBUMIN 3.1 GM/DL (3.2-5.2); ANION GAP 8 MEQ/L (8-16); BLOOD UREA NITROGEN 12 MG/DL (7-18); CALCIUM LEVEL 8.7 MG/DL (8.8-10.2); CARBON DIOXIDE LEVEL 28 MEQ/L (21-32); CHLORIDE LEVEL 106 MEQ/L (98-107); GLOMERULAR FILTRATION RATE > 60.0 (>45); GLUCOSE, FASTING 99 MG/DL (80-110); PHOSPHORUS LEVEL 3.9 MG/DL (2.5-4.9); SODIUM LEVEL 142 MEQ/L (136-145)
[2016-12-24] MEDS: HumaLOG INSULIN (NovoLOG) PER UNIT SC SCH ×4 (07:30→21:00)
[2016-12-24] MEDS ORDERED: GASTROGRAFIN SOLUTION 30ML (Q9963) PO ONE (07:30)
--- NOTE | 2016-12-24 07:45 | REP ---
MR LUMBAR SPINE WITHOUT CONTRAST: HISTORY: Vertebral body fracture. COMPARISON: CT 12/22/2016. There are six lumbar-type vertebral bodies. Decreased signal intensity on T2-weighted images is present in the lumbar intervertebral discs. The L3-4 through L5-6 intervertebral discs are decreased in height. These findings are consistent with disc degeneration. There is no disc bulge or herniation at the L1-2 through L4-5 intervertebral discs. There is hypertrophy of the posterior articulating facets at the L4-5 level. The nerves exit the neural foramina without compression. A diffuse disc bulge is present at the L5-6 level. There is hypertrophy of the ligamenta flava and posterior articulating facets. These findings produce minimal central canal stenosis. The L5 nerves exit the neural foramina without compression. A diffuse disc bulge is present at the L6-S1 level. There is no thecal sac or nerve compression. There is hypertrophy of the posterior articulating facets. The L6 nerves exit the neural foramina without compression. Heterogeneous increased signal intensity on T2-weighted images is present in the L1 vertebral body. A curvilinear area of decreased signal intensity is present in the superior endplate region. These findings are consistent with an acute fracture. There is very minimal loss of vertebral body height. There is no subluxation. IMPRESSION: 1. Minimal central canal stenosis at the L5-6 level secondary to disc bulge, ligamentous and facet hypertrophy. 2. Diffuse disc bulge at the L6-S1 level without thecal sac or nerve compression. 3. Acute L1 compression fracture with very minimal height loss. Signed by David Zarco MD 12/24/2016 08:25 A
--- NOTE | 2016-12-24 07:46 | REP ---
MR THORACIC SPINE WITHOUT CONTRAST: HISTORY: T12 fracture. There is no disc bulge or herniation. The spinal canal and neural foramina are patent. Increased signal intensity on T2-weighted images is present in the L1 vertebral body. There is very minimal loss of vertebral body height. A curvilinear area of decreased signal intensity is present in the superior endplate region. These findings are consistent with an acute fracture. There is no subluxation. Normal signal intensity is present in the thoracic vertebral bodies. IMPRESSION: 1. There is no disc bulge or herniation. 2. Acute compression fracture of the L1 vertebral body with very minimal height loss. Signed by David Zarco MD 12/24/2016 08:10 A
[2016-12-24] MEDS: clonazePAM 0.5 MG TAB PO SCH ×2 (09:20→21:14)
[2016-12-24] MEDS: ROSUVASTATIN 10 MG TAB (CRESTOR) PO SCH (09:20)
[2016-12-24] MEDS: MOM 30ML SUSPENSION UDC PO SCH (09:20)
[2016-12-24] MEDS: DIVALPROEX 500 MG TAB PO SCH ×2 (09:20→21:14)
[2016-12-24] MEDS: VITAMIN D 1,000 INTERNATIONAL UNITS TABLET PO SCH (09:21)
[2016-12-24] MEDS: lamoTRIgine 100MG TAB PO SCH (09:21)
[2016-12-24] MEDS: SENNA 8.6 MG TAB (SENOKOT) PO SCH ×2 (09:21→21:00)
[2016-12-24] MEDS: TOLTERODINE TARTRATE 2 MG LA CAP (DETROL LA) PO SCH ×2 (09:21→22:07)
[2016-12-24] MEDS: SENOKOT S TAB PO SCH ×2 (09:21→21:00)
[2016-12-24] MEDS: CALCITONIN NASAL SPRAY 3.7 ML BTL SCH (09:23)
[2016-12-24] MEDS ORDERED: ISOVUE-370 76% 100ML VIAL (Q9967) As Ordered ONE (10:16)
--- NOTE | 2016-12-24 11:46 | REP ---
LUMBAR SPINE, FIVE VIEWS: HISTORY: L1 fracture. COMPARISON: CT 12/22/2016. There are six lumbar-type vertebral bodies. There is an acute fracture of the superior endplate of the L1 vertebral body with very minimal height loss. There is no subluxation. The L3-4 through L5-6 intervertebral discs are decreased in height consistent with disc degeneration. Osteophytes are present on L3 through 6. There is narrowing of the L4-5 and L5-S1 facet joints with associated sclerosis. There is a fracture of the L5 spinous process that appears old. IMPRESSION: 1. Acute fracture of the superior endplate of the L1 vertebral body with minimal height loss. 2. Degenerative change, as described above. Signed by David Zarco MD 12/24/2016 11:53 A
--- NOTE | 2016-12-24 13:38 | REP ---
CT ABDOMEN AND PELVIS WITH CONTRAST: TECHNIQUE: Axial contrast enhanced images from the lung bases to the pubic symphysis using 100 mL Isovue 370 intravenous contrast material with multiplanar reformations. The visualized lung bases demonstrate minor fibroatelectatic change. Liver, spleen, adrenals, pancreas and kidneys are essentially unremarkable. There is no hydronephrosis. Tiny cyst is seen in the upper pole of the left kidney. There is no abdominal aortic aneurysm. No adenopathy is seen. There is no free air or free fluid. No bowel wall thickening is seen. There is no evidence of bowel obstruction. No pelvic mass is seen. Uterus is deviated to the left of midline. Urinary bladder appears unremarkable. Compression deformity is again noted of the T12 vertebral body unchanged since the prior CT of 12/22/2016. IMPRESSION: No acute abnormalities, with no change since prior study of 12/22/2016. No free air or free fluid. No evidence of bowel obstruction. Compression deformity again noted of T12 vertebral body. Signed by Willie Naidu MD 12/24/2016 08:09 P
[2016-12-24] MEDS: VIIBRYD 10 MG PO SCH (13:53)
[2016-12-24 14:00] VITALS: BP 126/76
--- NOTE | 2016-12-24 14:41 | IPN ---
DATE OF VISIT: 12/24/2016 SUBJECTIVE: This is a 71-year-old female who was seen and examined at bedside. Yesterday, she underwent MR lumbar spine and was found to have acute L1 compression fracture. Was reporting worsening abdominal pain overnight and was planned for abdominal CT repeat this morning. Because of her persistent worsening pain, her medications were adjusted. This morning, feels that her pain is somewhat better controlled. Abdominal pain is somewhat improved after multiple bowel movements. Since midnight, she was nothing by mouth due to pending imaging. Denies any chest pain, shortness of breath, nausea, vomiting, diarrhea, constipation, fevers, chills. OBJECTIVE: Vital signs: Blood pressure 162/85, heart rate 75, temperature 98.7, respiration rate 18, pulse oximetry 93% on 2 liters nasal cannula. Intake and output the last 24 hours: 1450. Output is not accurately documented. Weight is 87.5 kg built-in bed scale. General: She is lying in bed, comfortable. No acute pulmonary or psychiatric distress. She is alert, awake, oriented times three. Pleasant and cooperative. at bedside. HEENT: Normocephalic, atraumatic. Moist oral mucosa. Good dentition. No thrush or lesions. Nasal septum midline. Wearing nasal prongs. Eyes: Extraocular movement intact. Pupils equal and reactive to light. Neck supple. Trachea midline. No jugular venous distention (JVD). No palpable thyromegaly or lymphadenopathy. Chest: Symmetric chest rise. No accessory muscle use. Breath sounds were diminished bilaterally anteriorly. Heart: Regular rate and rhythm with normal S1, S2. Did not appreciate murmurs, rubs, or gallops. Abdomen is protuberant, mildly tender to palpation in left lower quadrant. No guarding. No rebound. No peritoneal signs. Bowel sounds present and active. Could not appreciate organomegaly secondary to body habitus. Extremities: No pedal edema. Pedal pulses present bilaterally. Skin: Without area of cyanosis, mottling, or redness. Neurologic: Strength 4/5 bilateral lower extremity due to pain. Sensory intact. Negative Babinski. Cranial nerves II-XII grossly intact. Some tremor on examination, which is chronic due to Parkinson disease. Psychiatric: Normal affect. LABORATORY DATA: WBC 7.3, hemoglobin 12, hematocrit 38.9, platelets 333. Sodium 142, potassium 4, chloride 106, carbon dioxide 28, BUN 12, creatinine 0.7 , glucose 99, calcium 8.7, phosphorus 3.9, lactic acid normal. Lamotrigine level is pending. Valproic acid is 26.9. Munday is less than 0.2. Fingerstick glucose ranges anywhere from 98-139. Urine culture negative. Thoracic lumbar spine shows acute compression fracture of L1 vertebral body with minimal height loss. Lumbar MRI showed minimal central canal stenosis at L5-6 secondary to disc bulge, ligamentous and facet hypertrophy. Diffuse disc bulge at L6-S1 level without thecal sac or nerve compression. Acute L1 compression fracture with very minimal height loss. IMPRESSION AND PLAN: Ms. Barrera is a pleasant 71-year-old female, past medical history of Parkinson disease, presented for back pain, found to have nondisplaced L4 spinous fracture on CT, underwent MRI which also showed evidence of L1 compression fracture. 1. Low back pain secondary to L1 compression fracture. Because of this acute fracture, we have consulted orthopedic for assistance. Continue neuro check every 4. Have adjusted her pain control and also consult pain management for assistance. We will change her activity to bedrest for now and physical therapy pending evaluation by orthopedics and her severe pain. 2. Hypertension. She is on her home dose of Toprol XL 12.5 mg nightly. 3. Hyperlipidemia. Continue Crestor 20 mg daily. 4. Type 2 diabetes. Continue insulin sliding scale. Her fingersticks have been reasonable. 5. Abdominal pain. Etiology unclear. Her CT on admission was unrevealing. However, because of her persistent symptoms, a repeat CT scan has been ordered, and this is pending at this time. She is on a bowel regimen due to her narcotics for her back pain. 6. Hypothyroidism. Continue levothyroxine. 7. Anxiety and depression. Continue home dose of clonazepam and Viibryd. 8. Bipolar disorder. Continue Depakote, lamotrigine. 9. Arthritis. Continue home medication. 10. History of overactive bladder. Continue home dose medication. 11. Gastroesophageal reflux disease (GERD). Continue home dose Prevacid. 12. Insomnia. Continue trazodone as needed. 13. Obstructive sleep apnea (GUME). Continue GUME protocol. Monitor her symptoms closely because she is on multiple narcotics and also benzodiazepine. 14. Vitamin D deficiency. Continue vitamin D supplementation. 15. Deep venous thrombosis (DVT) prophylaxis. Sequential compression devices (SCDs), thromboembolism deterrent stockings (TEDs), and heparin. My preceptor for this patient encounter was Dr. Tyrone Lee. The preceptor was physically present in the building during the encounter and was fully available as needed. All aspects of the patient interview, examination, medical decision making process, and medical care plan development were reviewed and approved by the preceptor. The preceptor is aware and concurs with the plan as stated in the body of this note and will attest to such by his/her co-signature. JOHN
[2016-12-24] MEDS: MORPHINE 4 MG/ML 1ML SYRINGE IV PRN ×3 (15:45→21:34)
--- NOTE | 2016-12-24 18:44 | CR.PDOC ---
[facility] Pain Clinic Consultation General Date of Consultation: 12/24/16 Consultation Report For: MARIO PATRICK MD Chief Complaint The patient is a 71-year-old female admitted with a reason for visit of Intractable Back Pain. The pain clinic is asked to see her for further evaluation History of Present Illness Jayla Barrera is a 71-year-old female who was in her usual state of health until approximately 12/17/2016 when she sustained a fall at home. She states that she lost her balance and fell backward into a with chair. Reports she had immediate onset of pain in the low back, which remained. She did come to the emergency room at that time, CT scan of the lumbar spine did demonstrate a nondisplaced fracture of the L4 spinous process. She was given pain medications and she did return home. 2 days ago began having increased pain and then return to the emergency room on 12-21. She notes that the pain was particularly severe with any movement. Notes the pain is centered across the low back and into the upper buttock area. Denies any pain radiating into the legs. Denies any loss of bowel or bladder control. Denies any numbness or tingling into the legs or feet or into the perineum. Notes that she does have some weakness and difficulty with ambulation secondary to her long history of Parkinson's disease. In the emergency room she was given laxative medications which have improved her bowel function. She states she has not had any loss of bowel control since admission. Reports that she did previously have pain in the low back and was seen by Dr. Canseco at [facility]. He did do injection treatment , which she found it extremely helpful. This was several years ago. Home Medications Scheduled (Viibryd) 10 Mg Tab 10 MG PO DAILY (Reported) Aspirin (Aspir-81) 81 Mg Tab 81 MG PO QHS (Reported) Clonazepam (Clonazepam) 0.5 Mg Tab 0.5 MG PO BID (Reported) Diphenhydramine Hcl (Benadryl Allergy) 25 Mg Tab 50 MG PO QHS (Reported) Divalproex Sodium (Divalproex Sodium Dr) 250 Mg Tab 500 MG PO BID (Reported) Glipizide (Glipizide Xl) 5 Mg Tab 5 MG PO DAILY (Reported) Lamotrigine (Lamotrigine) 100 Mg Tab 100 MG PO DAILY (Reported) Lansoprazole (Prevacid) 30 Mg Cap 30 MG PO QHS (Reported) SOMETIMES WILL TAKE 2 Leflunomide (Leflunomide) 20 Mg Tab 20 MG PO DAILY (Reported) Levothyroxine Sodium (Synthroid) 75 Mcg Tab 75 MCG PO DAILY (Reported) Melatonin (Melatonin) 10 Mg Cap 10 MG PO QHS (Reported) Metformin Hydrochloride (Metformin HCl) 500 Mg Tab 1,000 MG PO BIDWM (Reported ) Metoprolol Succinate (Metoprolol Succinate ER) 25 Mg Tab 12.5 MG PO QHS ( Reported) Multivitamins *[facility] STOCKED* (Thera M Plus *[facility] STOCKED*) 1 Tab Tab 1 TAB PO QHS (Reported) Rosuvastatin Calcium (Crestor) 20 Mg Tab 20 MG PO DAILY (Reported) Tolterodine Tartrate (Tolterodine Tartrate ER) 4 Mg Cap 4 MG PO BID (Reported) Trazodone HCl (Trazodone HCl) 50 Mg Tab 25 MG PO QHS (Reported) Vitamin D (Vitamin D) 2,000 Unit Cap 2,000 UNIT PO DAILY (Reported) Scheduled PRN Oxycodone/Acetaminophen (Percocet 5-325 mg) 1 Tab Tab 2 TAB PO Q6H PRN PRN PAIN MDD 4 Allergies Coded Allergies: Aspirin (Verified Allergy, Unknown, 12/05/12) Clindamycin (Unverified Allergy, Unknown, SWOLLEN TONGUE AND EYES, 12/22/16 ) Codeine (Verified Allergy, Unknown, 12/17/16) ED NURSE VERIFIED THAT PT HAS RECEIVED PERCOCET BEFORE W/O ISSUE - 12/17/16 Conjugated Estrogens (Unverified Allergy, Unknown, PAIN IN LOWER EXTREMETIES, 12/22/16) Dexamethasone (Unverified Allergy, Unknown, EXTREME ITCHING , 12/22/16) Nystatin (Unverified Allergy, Unknown, GIVES THRUSH ON TONGUE , 12/22/16) Ondansetron (Unverified Allergy, Unknown, ITCHING AND HIVES, 12/22/16) Penicillins (Verified Allergy, Unknown, 12/05/12) Penicillins Cross Reactors (Verified Allergy, Unknown, 12/05/12) Propoxyphene (Verified Allergy, Unknown, 12/05/12) Sulfamethoxazole (Unverified Allergy, Unknown, ITCHING, 12/22/16) Tobramycin (Unverified Allergy, Unknown, EXTREME ITCHING , 12/22/16) Tramadol (Unverified Allergy, Unknown, EXTREME ITCHING , 12/22/16) Past Medical History Medical History 1. Parkinson's disease followed by Dr. Jung 2. Type 2 diabetes followed by primary doctor, Dr. Ian Mccall. 3. Psoriatic arthritis. 4. Anxiety, depression, panic attacks and bipolar depression followed by Dr. Cunha. 5. Strict of sleep apnea ordered on CPAP does not consistently use. 6. Hypertension. 7. Hypothyroidism. 8. GERD. 9. Hyperlipidemia Family History Significant Family History: Other (noncontributory) Social History Social History Denies tobacco, alcohol, or illicit substance abuse. Review of Systems Subjective Constitutional: Reports: nausea with pain, other (denies fever or chills) Skin: Denies: breakdown, lesions, rash Pulmonary: Denies: cough, dyspnea Cardiovascular: Denies: chest pain, edema, palpitations Gastrointestinal: Reports: constipation (secondary to recent constipating medications including opioids), loss of bowel control (denies) Genitourinary: Denies: dysuria, hematuria, loss of bladder control Hematologic: Denies: blood dyscrasias, easy bleeding, easy bruising Endocrine: Reports: Diabetes mellitus, Thyroid dysfunction Musculoskeletal: Reports: leg pain (denies), muscle pain, muscle stiffness ( secondary to Parkinson's disease), other (tender across the low back and into the buttocks. Denies pain radiating into the legs.), spasms Neurological: Reports: other (difficulty with speech volume secondary to Parkinson's disease), tremors (secondary to Parkinson's disease) Psych: Reports: mood normal, Denies: thoughts of harming other, thoughts of self harm Physical Examination Physical Examination Vital Signs/I&O Vital Signs Date Time Temp Pulse Resp B/P Pulse Ox O2 Delivery O2 Flow Rate FiO2 12/24/16 18:01 12 12/24/16 17:47 Nasal Cannula 12/24/16 14:00 99.6 95 126/76 94 2.0 I&O- Last 24 Hours up to 6 AM 12/24/16 06:00 Intake Total 1090 ml Output Total 200 ml Balance 890 ml General Exam: Positive: alert, attentive, no acute distress (while lying still) , oriented times three, talkative ENT EXAM: Positive: normocephalic Neck Exam: Positive: Carotid bruit (no bruits), Negative: Lymphadenopathy, Thyromegaly Chest Exam: Positive: Clear to auscultation, Negative: Rales, Wheezing Heart Exam: Positive: Normal S1, S2, Regular rate and rhythm, Negative: Murmurs, Rubs Abdominal Exam: Positive: Normal bowel sounds, Other (slightly distended), Soft Extremity Exam: Negative: Edema Skin Exam: Positive: Dry, Warm, Negative: Lesions, Rashes Neuro Exam: Positive: Muscle Strength U/L Ext., Normal Tone, Normal sensation, Other (masklike face. Pill rolling tremor noted at rest in the upper extremities. Difficulty with speech with speech volume trailing away at the end of sentences.), Reflexes 2+ Psych Exam: Positive: Alert and oriented x 3, Memory Intact (good historian) Inspection of spine Point tenderness over lumbar spinous processes. No tenderness elicited with palpation over the sacroiliac joints. Tenderness is present over the lumbar paravertebral muscles bilaterally. Musculoskeletal No pain with straight leg raise to 45. No pain with Javier's testing increased muscle tone noted in the upper and lower extremities. Some weakness noted bilaterally in the quadriceps. Is able to flex and extend bilaterally at the ankles without difficulty. Diagnostic and Imaging Studies MRI of the lumbar spine was completed on 12/23/2016. There are 6 lumbar type vertebral bodies. There is no disc bulge or herniation at the L1-2 through L4-5 intervertebral disc. There is hypertrophy of the posterior articulating facets at the L4-5 level. The nerves exit the neural foramina without compression. Diffuse disc bulge is present at L5, L6 level. There is hypertrophy of the lip ligamenta flava and posterior articulating facets. These produce mild central canal stenosis. The L5 nerves exit the neural foramina without compression. Diffuse disc bulges present at the L6 S1 level. There is no thecal sac or nerve compression. There is hypertrophy of the posterior articulating facets. There is a curvilinear area of decreased signal intensity present in the superior endplate region at the L1 vertebral body. These findings are consistent with an acute fracture. There is very minimal loss of vertebral body height. And there is no subluxation. X-ray of the lumbar spine was completed on 12/24/2016. This also demonstrated 6 lumbar type vertebral bodies. There is an acute fracture of the superior endplate of the L1 vertebral body with very minimal height loss. There is no subluxation. The L3-4 through L5 6 intravertebral disks are decreased in height consistent with deep disc degeneration. Osteophytes are present on L3 through 6. There is narrowing of the L4-5 and L5-S1 facet joints with associated sclerosis. There is a fracture of the L5 spinous process that appears old. Assessment 1. Low back pain, axial in nature. 2. Acute fracture of the superior endplate of the L1 vertebral body. 3. Lumbar facet arthropathy Recommendation and Plan I did review the case with Dr. Buchanan. At this time, and following the evaluation by orthopedics. Would like to offer bilateral lumbar facet block/ therapeutic. Patient has had previous interventional treatments in the low back with good success. Currently she is not noting any radicular symptoms but could entertain the option of a lumbar epidural injection for the future. She is reporting that her current medications are helpful. Being no recommendations for change of her oral medications. I will reevaluate tomorrow and we may look at ordering interventional treatment at that time. Thank you Dr. Patrick, for allowing us to participate in the care of your patient, Jayla Barrera . Should you have any questions we will be glad to discuss this with you at any time please contact us here at the pain center at [phone]. Karol Chaudhari MANAGER [employer] Dec 24, 2016 18:44
[2016-12-24] MEDS: MULTIVITAMINS/MINERALS THERAP 1 TAB PO SCH (21:14)
[2016-12-24] MEDS: PANTOPRAZOLE 40MG TAB (PROTONIX) PO SCH (21:14)
[2016-12-24] MEDS: METOPROLOL SUCC *XL* 12.5MG PER 1/2 TAB (TopROL *XL*) PO SCH (21:14)
[2016-12-24] MEDS: ASPIRIN 81 MG ENTERIC TAB PO SCH (21:15)
[2016-12-24 22:00] VITALS: BP 124/74
[2016-12-24] MEDS ORDERED: diphenhydrAMINE 25 MG CAP PO ONE (23:15)
[2016-12-25] MEDS: MORPHINE 4 MG/ML 1ML SYRINGE IV PRN ×3 (04:32→14:32)
[2016-12-25] MEDS: HEPARIN SOD (PORCINE) 5000 UNITS/ML VIAL SC SCH ×3 (05:01→21:47)
[2016-12-25] MEDS: LEVOTHYROXINE 0.075 MG TAB (75 MCG) PO SCH (05:01)
[2016-12-25 06:00] VITALS: BP 118/64
[2016-12-25] MEDS: oxyCODONE 5MG TAB PO PRN ×4 (07:21→21:47)
[2016-12-25 07:23] LABS: MEAN CORPUSCULAR HEMOGLOBIN 29.6 pg (27.0-33.0); MEAN CORPUSCULAR HGB CONC 31.5 g/dl (32.0-36.5); MEAN CORPUSCULAR VOLUME 93.8 fl (80.0-96.0); RED CELL DISTRIBUTION WIDTH 13.5 % (11.5-14.5); WHITE BLOOD COUNT 6.4 K/mm3 (4.0-10.0)
[2016-12-25 07:39] LABS: ANION GAP 7 MEQ/L (8-16); BLOOD UREA NITROGEN 16 MG/DL (7-18); CALCIUM LEVEL 8.9 MG/DL (8.8-10.2); CARBON DIOXIDE LEVEL 30 MEQ/L (21-32); CHLORIDE LEVEL 105 MEQ/L (98-107); CREATININE FOR GFR 0.74 MG/DL (0.55-1.02); GLOMERULAR FILTRATION RATE > 60.0 (>45); GLUCOSE, FASTING 120 MG/DL (80-110); POTASSIUM SERUM 4.2 MEQ/L (3.5-5.1); SODIUM LEVEL 142 MEQ/L (136-145)
[2016-12-25] MEDS: TOLTERODINE TARTRATE 2 MG LA CAP (DETROL LA) PO SCH ×2 (08:46→21:45)
[2016-12-25] MEDS: VITAMIN D 1,000 INTERNATIONAL UNITS TABLET PO SCH (08:46)
[2016-12-25] MEDS: HumaLOG INSULIN (NovoLOG) PER UNIT SC SCH ×4 (08:47→21:00)
[2016-12-25] MEDS: clonazePAM 0.5 MG TAB PO SCH ×2 (08:47→21:46)
[2016-12-25] MEDS: ROSUVASTATIN 10 MG TAB (CRESTOR) PO SCH (08:47)
[2016-12-25] MEDS: lamoTRIgine 100MG TAB PO SCH (08:47)
[2016-12-25] MEDS: DIVALPROEX 500 MG TAB PO SCH ×2 (08:47→21:46)
[2016-12-25] MEDS: VIIBRYD 10 MG PO SCH (08:48)
[2016-12-25] MEDS: MOM 30ML SUSPENSION UDC PO SCH (08:51)
[2016-12-25] MEDS: CALCITONIN NASAL SPRAY 3.7 ML BTL SCH (08:51)
[2016-12-25] MEDS: SENOKOT S TAB PO SCH ×2 (08:51→21:46)
--- NOTE | 2016-12-25 10:44 | CR ---
DATE OF CONSULTATION: 12/25/2016 I was asked to see this patient in consultation but apparently the consultation was not entered into the computer system at [facility]. However, I did managed to locate the patient with some difficulty. CHIEF COMPLAINT: Back pain. HISTORY OF PRESENT ILLNESS: Jayla is a 71-year-old woman with a history of Parkinson's disease, psoriatic arthritic changes and other problems who was doing laundry, feel in the laundry room. Injury happened on around December 17. Continued to have discomfort, ended up in the ER on the , was noted to have a fracture of L4 spinous process, however, pain continued to progress and she was admitted several days ago with constipation and back pain. She had an MRI that reflected an L1 compression fracture which seemed to be acute. Pain has been controlled with narcotics. She continues to complain of back pain. Denies numbness and tingling of the lower extremities. MRI reviewed. L1 compression deformity mild in degree, approximately 30% anterior loss of height, edema in the vertebral body at L1. MEDICAL HISTORY: Parkinson's disease. Type 2 diabetes. Hypothyroidism. Reflux. Obstructive sleep apnea. Psoriatic arthritis. Depression. Hyperlipidemia. Hypertension. Anxiety, Panic attacks. Bipolar disorder. PAST SURGICAL HISTORY: Ankle fixation. Knee surgery. Arm surgery. Colonoscopy. ALLERGIES: Include PENICILLIN with shortness of breath and anaphylaxis, DARVON, SULFA, HYDROCODONE, PERCODAN, TRAMADOL, CODEINE, but tolerates Percocet apparently here. MEDICATIONS AT HOME: - aspirin - clonazepam - Benadryl - Depakote - glipizide - lamotrigine - Prevacid - leflunomide - Synthroid - melatonin - metformin - metoprolol - multivitamin - Percocet - Crestor - tolterodine - trazodone - Viibryd - Vitamin D FAMILY HISTORY: Myocardial infarction paternal side. Maternal history of Alzheimer's disease. SOCIAL HISTORY: She does not smoke or drink or use drugs. She is . REVIEW OF SYSTEMS: Complaining of back pain. She is not complaining of headache, nausea, shortness of breath. He had some abdominal distension but not complaining of abdominal discomfort, not complaining of endocrine trouble, numbness or tingling or weakness. Psychiatric: Positive for bipolar disorder, anxiety, depression. Rheumatologic: Positive for psoriatic arthritis. CLINICAL EXAMINATION: She is alert, oriented and cooperative. Mood and affect are appropriate. She is pleasant. She appears to be comfortable and lying flat in bed. Pains her to move. Extremities. Neurologically intact lower extremities. No clonus sensate lower extremities. Palpable dorsalis pedis pulse at both lower extremities. The abdomen today is not distended. Additional imaging reviewed including lumbar spine plain films, abdominal pelvis CT, lumbar spine MRI, thoracic spine MRI, lumbar spine CT scan. IMPRESSION: Compression fracture T12 with moderate anterior loss of height, back pain, nondisplaced fracture of the spinous process of L4 on the right side. Incidental appreciation of transitional anatomy is noted by orthopedics at the lumbosacral junction. IMPRESSION L1 compression fracture, L4 transverse process fracture right. RECOMMENDATIONS: Recommended [place] brace. Recommend progressive mobilization. Recommend narcotic analgesics for pain control. Other considerations could be kyphoplasty although I would strongly suggest conservative management for a period of about 2-3 weeks prior to considering that option. This was explained to the patient and her and they are comfortable with that plan.
--- NOTE | 2016-12-25 12:09 | IPN ---
DATE: 12/25/2016 SUBJECTIVE: This is a 71-year-old female who is seen and examined at bedside. Yesterday was evaluated by pain management. This morning was also seen by orthopedic team. Today she still has pain to her back. Denies any chest pain, shortness of breath, nausea, vomiting, diarrhea, constipation, bowel or urinary incontinence. She is reporting decreased appetite due to her pain. OBJECTIVE: Vital signs: Blood pressure 118/54, heart rate 95, temperature 98.6 , respiratory rate 20, pulse ox 96% on 2 liters nasal cannula. Intake and output the last 24 hours only documented 540 and 800. Weight is 88.9 kg. General: Patient is lying in bed comfortable, no acute distress. Flat angle. at bedside. HEENT: Normocephalic, atraumatic, moist oral mucosa. Eyes: Extraocular movement intact. Pupils equal and reactive to light. Neck supple. Trachea midline. No jugular venous distention (JVD). Chest: Symmetric chest rise. No accessory muscle use. Breath sounds were diminished bilaterally but clear without wheezing, rales or rhonchi. Heart: Regular rate and rhythm with normal S1, S2. Did not appreciate any murmurs, rubs or gallops. Abdomen: Protuberant, nontender, nondistended, bowel sounds heard. No guarding. No rebound. No peritoneal signs. Extremities: No pedal edema. Pedal pulses present bilaterally. Neurologic: Strength is diminished bilateral lower extremities due to her pain. Sensory intact. Negative Babinski. No other deficits appreciated. Did not assess gait. No tremors on examination today. Psychiatric: Pleasant, cooperative, normal affect. LABORATORY DATA: WBC 6.4, hemoglobin 11.9, hematocrit 37.8, platelets 350. Sodium 142, potassium 4.2, chloride 105, carbon dioxide 30, BUN 16, creatinine 0.74, glucose 120. Calcium 8.9, alkaline phosphorus 4, albumin 3. IMPRESSION AND PLAN: Ms. Barrera is a pleasant 71-year-old female with history of Parkinson's disease admitted for L1 compression fracture. 1. Low back pain secondary to L1 compression fracture. Continue neuro checks. Continue pain control with oxycodone 7.5 mg every 4 hours and morphine 3 mg every 2 hours as needed. She has already been evaluated by orthopedics. Will followup with recommendations. Greatly appreciate Dr. Pascual's assistance. 2. Hypertension. Blood pressure is reasonable. Continue home dose medication Toprol XL 12.5 mg by mouth at bedtime. 3. Hyperlipidemia. Continue home dose Crestor. 4. Type 2 diabetes. Continue insulin sliding scale. Finger sticks are reasonable. 5. Hypothyroidism, continue levothyroxine. 6. Anxiety/depression. Continue clonazepam and Viibryd. 7. Bipolar disorder. Continue Depakote and lamotrigine. 8. Gastroesophageal reflux disease (GERD), continue Prevacid. 9. Obstructive sleep apnea. Continue obstructive sleep apnea (GUME) protocol. Monitor her respiratory status closely due to multiple narcotics for her back pain and also benzodiazepines. 10. Vitamin D deficiency, continue vitamin D supplementation. 11. Deep venous thrombosis (DVT) prophylaxis, sequential compression devices (SCD), thromboembolic deterrent stockings (TEDS) and heparin. My preceptor for this patient encounter was Dr. Connolly. The preceptor was physically present in the building during the encounter and was fully available. As needed, all aspects of the patient interview, examination, medical decision making process, and medical care plan development were reviewed and approved by the preceptor. The preceptor is aware and concurs with the plan as stated in the body of this note and will attest to such by his/her cosignature. JOHN
[2016-12-25 14:00] VITALS: BP 112/64
[2016-12-25] MEDS: METOPROLOL SUCC *XL* 12.5MG PER 1/2 TAB (TopROL *XL*) PO SCH (21:45)
[2016-12-25] MEDS: PANTOPRAZOLE 40MG TAB (PROTONIX) PO SCH (21:46)
[2016-12-25] MEDS: MULTIVITAMINS/MINERALS THERAP 1 TAB PO SCH (21:46)
[2016-12-25] MEDS: ASPIRIN 81 MG ENTERIC TAB PO SCH (21:46)
[2016-12-25 22:00] VITALS: BP 132/80
[2016-12-26] MEDS: oxyCODONE 5MG TAB PO PRN ×5 (03:24→22:13)
[2016-12-26] MEDS: LEVOTHYROXINE 0.075 MG TAB (75 MCG) PO SCH (05:36)
[2016-12-26] MEDS: HEPARIN SOD (PORCINE) 5000 UNITS/ML VIAL SC SCH ×3 (05:36→22:05)
[2016-12-26 06:00] VITALS: BP 131/74
[2016-12-26 06:54] LABS: MEAN CORPUSCULAR HEMOGLOBIN 29.4 pg (27.0-33.0); MEAN CORPUSCULAR HGB CONC 31.1 g/dl (32.0-36.5); MEAN CORPUSCULAR VOLUME 94.5 fl (80.0-96.0); RED CELL DISTRIBUTION WIDTH 13.5 % (11.5-14.5); WHITE BLOOD COUNT 7.9 K/mm3 (4.0-10.0)
[2016-12-26 07:10] LABS: ALBUMIN 3.1 GM/DL (3.2-5.2); ANION GAP 8 MEQ/L (8-16); BLOOD UREA NITROGEN 20 MG/DL (7-18); CALCIUM LEVEL 9.4 MG/DL (8.8-10.2); CARBON DIOXIDE LEVEL 30 MEQ/L (21-32); CHLORIDE LEVEL 105 MEQ/L (98-107); CREATININE FOR GFR 0.79 MG/DL (0.55-1.02); GLOMERULAR FILTRATION RATE > 60.0 (>45); GLUCOSE, FASTING 149 MG/DL (80-110); PHOSPHORUS LEVEL 4.2 MG/DL (2.5-4.9); POTASSIUM SERUM 4.3 MEQ/L (3.5-5.1); SODIUM LEVEL 143 MEQ/L (136-145)
[2016-12-26] MEDS: MOM 30ML SUSPENSION UDC PO SCH (08:22)
[2016-12-26] MEDS: VIIBRYD 10 MG PO SCH (09:31)
[2016-12-26] MEDS: TOLTERODINE TARTRATE 2 MG LA CAP (DETROL LA) PO SCH ×2 (09:32→22:06)
[2016-12-26] MEDS: clonazePAM 0.5 MG TAB PO SCH ×2 (09:32→22:08)
[2016-12-26] MEDS: VITAMIN D 1,000 INTERNATIONAL UNITS TABLET PO SCH (09:32)
[2016-12-26] MEDS: ROSUVASTATIN 10 MG TAB (CRESTOR) PO SCH (09:32)
[2016-12-26] MEDS: DIVALPROEX 500 MG TAB PO SCH ×2 (09:32→22:08)
[2016-12-26] MEDS: HumaLOG INSULIN (NovoLOG) PER UNIT SC SCH ×4 (09:32→21:00)
[2016-12-26] MEDS: SENOKOT S TAB PO SCH ×2 (09:32→22:08)
[2016-12-26] MEDS: lamoTRIgine 100MG TAB PO SCH (09:32)
[2016-12-26] MEDS: MORPHINE 4 MG/ML 1ML SYRINGE IV PRN ×2 (10:35→14:49)
[2016-12-26 14:00] VITALS: BP 117/68
[2016-12-26 22:00] VITALS: BP 119/71
[2016-12-26] MEDS: METOPROLOL SUCC *XL* 12.5MG PER 1/2 TAB (TopROL *XL*) PO SCH (22:06)
[2016-12-26] MEDS: ASPIRIN 81 MG ENTERIC TAB PO SCH (22:06)
[2016-12-26] MEDS: PANTOPRAZOLE 40MG TAB (PROTONIX) PO SCH (22:08)
[2016-12-26] MEDS: MULTIVITAMINS/MINERALS THERAP 1 TAB PO SCH (22:09)
[2016-12-27] MEDS: oxyCODONE 5MG TAB PO PRN ×2 (05:29→09:43)
[2016-12-27] MEDS: LEVOTHYROXINE 0.075 MG TAB (75 MCG) PO SCH (05:29)
[2016-12-27] MEDS: HEPARIN SOD (PORCINE) 5000 UNITS/ML VIAL SC SCH ×3 (05:29→20:28)
[2016-12-27 06:00] VITALS: BP 130/76
[2016-12-27 06:40] LABS: MEAN CORPUSCULAR HGB CONC 31.1 g/dl (32.0-36.5); MEAN CORPUSCULAR VOLUME 93.5 fl (80.0-96.0); RED CELL DISTRIBUTION WIDTH 13.3 % (11.5-14.5); WHITE BLOOD COUNT 7.4 K/mm3 (4.0-10.0)
[2016-12-27 06:56] LABS: ALBUMIN 3.1 GM/DL (3.2-5.2); ANION GAP 8 MEQ/L (8-16); BLOOD UREA NITROGEN 17 MG/DL (7-18); CALCIUM LEVEL 9.3 MG/DL (8.8-10.2); CARBON DIOXIDE LEVEL 31 MEQ/L (21-32); CHLORIDE LEVEL 106 MEQ/L (98-107); CREATININE FOR GFR 0.75 MG/DL (0.55-1.02); GLOMERULAR FILTRATION RATE > 60.0 (>45); GLUCOSE, FASTING 134 MG/DL (80-110); PHOSPHORUS LEVEL 3.8 MG/DL (2.5-4.9); POTASSIUM SERUM 4.1 MEQ/L (3.5-5.1); SODIUM LEVEL 145 MEQ/L (136-145)
[2016-12-27] MEDS: HumaLOG INSULIN (NovoLOG) PER UNIT SC SCH ×4 (08:26→21:00)
[2016-12-27] MEDS: VIIBRYD 10 MG PO SCH (08:26)
[2016-12-27] MEDS: DIVALPROEX 500 MG TAB PO SCH ×2 (08:26→20:27)
[2016-12-27] MEDS: lamoTRIgine 100MG TAB PO SCH (08:26)
[2016-12-27] MEDS: clonazePAM 0.5 MG TAB PO SCH ×2 (08:26→20:27)
[2016-12-27] MEDS: VITAMIN D 1,000 INTERNATIONAL UNITS TABLET PO SCH (08:27)
[2016-12-27] MEDS: ROSUVASTATIN 10 MG TAB (CRESTOR) PO SCH (08:27)
[2016-12-27] MEDS: MOM 30ML SUSPENSION UDC PO PRN (09:44)
[2016-12-27] MEDS: SENOKOT S TAB PO PRN (09:44)
[2016-12-27] MEDS: TOLTERODINE TARTRATE 2 MG LA CAP (DETROL LA) PO SCH ×2 (12:22→20:26)
[2016-12-27 14:00] VITALS: BP 122/74
--- NOTE | 2016-12-27 14:58 | IPN ---
DATE: 12/26/2016 SUBJECTIVE: This is a 71-year-old female who is seen and examined at bedside. This morning states that she was doing physical therapy and after therapy had experienced excruciating back pain. Also wore her brace that was ordered by orthopedics this morning. Her abdominal pain has improved. Has been having a lot of bowel movements. No nausea, vomiting, diarrhea, constipation, fever, chills, headaches, shortness of breath or chest pain. OBJECTIVE: Vital signs: Blood pressure 131/74, heart rate 90, temperature 98.7, respiration rate 18, pulse oximetry 94% on room air. Intake and output last 24 hours: 60 and 375 documented only. GENERAL: The patient is lying in bed, flat angle. Comfortable. No acute distress. at bedside. HEENT: Normocephalic, atraumatic. Eyes: Extraocular movement intact. Pupils equal and reactive to light. NECK: Supple. Trachea midline. No jugular venous distention (JVD). CHEST: Symmetric chest rise. No accessory muscle use. Breath sounds were diminished bilaterally, but no wheezing, rales or rhonchi. HEART: Regular rate and rhythm, with normal S1, S2. ABDOMEN: Protuberant, nontender. Nondistended. Bowel sounds present. No guarding , no rebound. EXTREMITIES: No pedal edema. Pedal pulses present bilaterally. NEUROLOGICAL: Strength is diminished bilateral lower extremities secondary to pain. Sensory intact. Negative Babinski. PSYCHIATRIC: Pleasant, cooperative. LABORATORY DATA: WBC 7.9, hemoglobin 12.4, hematocrit 39.8, platelets 373, sodium 143, potassium 4.3, chloride 105, carbon dioxide 30, BUN 20, creatinine 0.79. Fasting glucose 149. Calcium 9.4. Lamotrigine level is still pending. IMPRESSION/PLAN: Mrs. Barrera is a pleasant 71-year-old female who was admitted for an acute compression fracture. 1. L1 compression fracture. Has been evaluated by Dr. Pascual who at this time recommends a Teja brace. At this time the plan is for conservative management prior to any plans for surgery. She is undergoing physical therapy. Greatly appreciate Dr. Pascual's assistance. 2. Hypertension. Blood pressure is reasonable. Continue current medication, Toprol XL. 3. Hyperlipidemia. Continue Crestor. 4. Type 2 diabetes. Continue insulin sliding scale. 5. Hypothyroidism. Continue levothyroxine. 6. Anxiety and depression. Continue home medications including benzodiazepine and Viibryd. 7. Bipolar disorder. Lamotrigine level is pending. Osorio is on her home dose. 8. Gastroesophageal reflux disease (GERD). Continue Prevacid. 9. Obstructive sleep apnea (GUME). Continue GUME protocol. 10. Vitamin D deficiency. Continue vitamin D supplementation. 11. Deep venous thrombosis (DVT) prophylaxis, Sequential compression devices (SCDs), thromboembolism deterrents (TEDs), and heparin. My preceptor for this patient encounter was Dr. Lupe Connolly. The preceptor was physically present in the building during the encounter and was fully available. As needed, all aspects of the patient interview, examination, medical decision making process, and medical care plan development were reviewed and approved by the preceptor. The preceptor is aware and concurs with the plan as stated in the body of this note and will attest to such by his/her cosignature. JOHN
[2016-12-27] MEDS: PERCOCET 5MG/325MG TAB PO PRN ×2 (15:40→20:27)
--- NOTE | 2016-12-27 18:49 | IPN ---
DATE: 12/27/2016 SUBJECTIVE: This is a 71 female who is seen and examined at bedside. Overnight no reported acute events. This morning, she was moved from her bed to her chair, and reported pain with movement. Reports difficulty with urination when she is in bed, but after sitting up, her urine output has significantly improved. No chest pain, shortness of breath, palpitations, nausea, vomiting. She has poor appetite but does try to eat. OBJECTIVE: VITAL SIGNS: Blood pressure 130/76, heart rate 92, temperature 98.5, respiratory rate 18, pulse oximetry 92% on two liters nasal cannula. Intake and output in the last 24 hours 200 and 375. Weight is 76.8 kg reported today. GENERAL: The patient is sitting in chair comfortable. No acute distress. Alert, awake, oriented times three. Pleasant and cooperative. LUNGS: Clear to auscultation. No wheezing, rales or rhonchi. HEART: Regular rate and rhythm with normal S1, S2. ABDOMEN: Protuberant, nontender, nondistended. Bowel sounds present. No guarding , no rebound. EXTREMITIES: No pedal edema. Pedal pulses present bilaterally. NEUROLOGIC: Strength diminished bilateral lower extremities secondary to pain. Sensory intact. PSYCHIATRIC: Pleasant, cooperative. MUSCULOSKELETAL: She is wearing her Lee brace. LABORATORY DATA: WBC 7.4, hemoglobin 12, hematocrit 38.8, platelets 337. Sodium 145, potassium 4.1, chloride 106, carbon dioxide 30, BUN 17, creatinine 0.75, glucose 134, calcium 9.3, phosphorus 3.8, albumin 1.3. Fingerstick glucose had been ranging 146 to 180. IMPRESSION AND PLAN: Ms. Barrera is a 71-year-old female with L1 compression fracture. 1. L1 compression fracture. Continues to be participating with physical therapy and occupational therapy. Has already been evaluated by Dr. Pascual. At this time , he has recommended conservative management with a brace. 2. Hypertension. Blood pressure is reasonable. Continue with Toprol XL. 3. Hyperlipidemia. Continue Crestor. 4. Type 2 diabetes, insulin sliding scale. Fingersticks have been reasonable. 5. Hypothyroidism. Continue levothyroxine. 6. Anxiety/depression. Continue clonazepam and Viibryd. 7. Bipolar disorder. Continue lamotrigine and Depakote. 8. Gastroesophageal reflux disease (GERD). Continue Prevacid. 9. Obstructive sleep apnea (GUME). Continue GMUE protocol. 10. Vitamin D deficiency. Continue vitamin supplementation. 11. Deep venous thrombosis (DVT) prophylaxis. Sequential compression devices (SCDs), thromboembolism deterrent stockings (TEDs), and heparin 5000 units every eight hours. My preceptor for this patient encounter was Dr. Connolly. The preceptor was physically present in the building during the encounter and was fully available. As needed, all aspects of the patient interview, examination, medical decision making process, and medical care plan development were reviewed and approved by the preceptor. The preceptor is aware and concurs with the plan as stated in the body of this note and will attest to such by his/her cosignature. JOHN
[2016-12-27] MEDS: METOPROLOL SUCC *XL* 12.5MG PER 1/2 TAB (TopROL *XL*) PO SCH (20:26)
[2016-12-27] MEDS: PANTOPRAZOLE 40MG TAB (PROTONIX) PO SCH (20:27)
[2016-12-27] MEDS: MULTIVITAMINS/MINERALS THERAP 1 TAB PO SCH (20:27)
[2016-12-27] MEDS: ASPIRIN 81 MG ENTERIC TAB PO SCH (20:29)
[2016-12-27 22:00] VITALS: BP 127/70
[2016-12-28] MEDS: PERCOCET 5MG/325MG TAB PO PRN ×5 (05:37→22:17)
[2016-12-28] MEDS: LEVOTHYROXINE 0.075 MG TAB (75 MCG) PO SCH (05:37)
[2016-12-28] MEDS: HEPARIN SOD (PORCINE) 5000 UNITS/ML VIAL SC SCH ×3 (05:37→22:16)
[2016-12-28 06:41] LABS: MEAN CORPUSCULAR HEMOGLOBIN 29.9 pg (27.0-33.0); MEAN CORPUSCULAR HGB CONC 31.4 g/dl (32.0-36.5); MEAN CORPUSCULAR VOLUME 95.3 fl (80.0-96.0); RED CELL DISTRIBUTION WIDTH 13.6 % (11.5-14.5); WHITE BLOOD COUNT 10.2 K/mm3 (4.0-10.0)
[2016-12-28] MEDS: VIIBRYD 10 MG PO SCH (08:45)
[2016-12-28] MEDS: HumaLOG INSULIN (NovoLOG) PER UNIT SC SCH ×4 (08:45→21:00)
[2016-12-28] MEDS: ROSUVASTATIN 10 MG TAB (CRESTOR) PO SCH (08:45)
[2016-12-28] MEDS: VITAMIN D 1,000 INTERNATIONAL UNITS TABLET PO SCH (08:45)
[2016-12-28] MEDS: TOLTERODINE TARTRATE 2 MG LA CAP (DETROL LA) PO SCH ×2 (08:46→22:18)
[2016-12-28] MEDS: lamoTRIgine 100MG TAB PO SCH (08:46)
[2016-12-28] MEDS: DIVALPROEX 500 MG TAB PO SCH ×2 (08:46→22:18)
[2016-12-28] MEDS: clonazePAM 0.5 MG TAB PO SCH ×2 (08:46→22:16)
[2016-12-28] MEDS: SENOKOT S TAB PO PRN (12:26)
[2016-12-28] MEDS: MOM 30ML SUSPENSION UDC PO PRN (12:26)
[2016-12-28 14:08] VITALS: BP 138/76
--- NOTE | 2016-12-28 15:23 | IPN ---
DATE: 12/28/2016 SUBJECTIVE: This is a 71 female who is seen and examined at bedside. Overnight no reported acute events. This morning, was able to walk three steps with physical therapy, but did complain of excruciating back pain after PT. Her Percocet was adjusted by orthopedic team this morning. Denies any chest pain, shortness of breath, nausea, vomiting, diarrhea, constipation. Currently insurance is pending for PMR (Physical Medicine and Rehabilitation) and [facility] ([facility]) is hoping to arrange for subacute rehabilitation as well. OBJECTIVE: VITAL SIGNS: Blood pressure 138/76, heart rate 97, temperature 99.4, respiratory rate 16, pulse oximetry 94% on 1 liter nasal cannula. INTAKE AND OUTPUT: Not accurately documented. Only documented 260 and 550. GENERAL: The patient is lying in bed, flat, comfortable, No acute distress. Alert, awake, oriented times three. Pleasant and cooperative. at bed side. HEENT: Normocephalic, atraumatic. Moist oral mucosa. Eyes: Extraocular movement intact. Pupils equal and reactive to light. NECK: Supple. Trachea midline. No jugular venous distention. CHEST: Symmetric chest rise. No accessory muscle use. Breath sounds were clear to auscultation bilaterally. HEART: Regular rate and rhythm with normal S1, S2. ABDOMEN: Soft, non-tender, non-distended. Bowel sounds present. No guarding, no rebound. EXTREMITIES: No pedal edema. Pedal pulses present bilaterally. NEUROLOGIC: Strength is 4/5 in bilateral lower extremities secondary to pain. Sensory intact. PSYCHIATRIC: Pleasant, cooperative. Normal affect. LABORATORY DATA: WBC 10.2 , hemoglobin 12.8, hematocrit 40.7, platelets 376. Sodium 140, potassium 4.1, chloride 106, carbon dioxide 31, BUN 17, creatinine 0.75, glucose 134, calcium 9.3, phosphorus 3.8, albumin 3.1. No new imaging. IMPRESSION AND PLAN: Ms. Barrera is a 71-year-old female with history of Parkinson's disease presented for low back pain, found to have L1 compression fracture. 1. L1 compression fracture. Currently is doing physical therapy and occupational therapy. Pain control reportedly is still suboptimal per patient. However, because her obstructive sleep apnea history along with her benzodiazepine use inpatient, the patient is aware that we have to be cautious regarding her narcotic use to prevent her from going into respiratory depression. Back brace is per orthopedic team. Currently she has insurance pending for PMnR (Physical Medicine and Rehabilitation). 2. Hypertension. Blood pressure is reasonable. She is on home dose Toprol XL 12.5 mg at bedtime. 3. Hyperlipidemia. Continue Crestor. 4. Parkinson's disease. 5. Hypothyroidism. Continue levothyroxine. 6. Type 2 diabetes, continue insulin sliding scale. 7. Bipolar disorder. Lamotrigine level was therapeutic. 8. Anxiety/depression. Continue clonazepam and Viibryd. 9. Gastroesophageal reflux disease (GERD). Continue Prevacid. 10. Obstructive sleep apnea (GUME). Continue GUME protocol. Monitor her respiratory status closely while she is on narcotics and benzodiazepine. 11. Vitamin D deficiency. Continue vitamin supplementation. 12. Deep venous thrombosis (DVT) prophylaxis. Sequential compression devices (SCDs), thromboembolism deterrent stockings (TEDs), and heparin. DISPOSITION: At this time she has already been evaluated by PMnR (Physical Medicine and Rehabilitation). Awaiting their recommendation. Continue physical therapy. Case discussed with nursing staff and [facility] ([facility]. My preceptor for this patient encounter was Dr. Lupe Connolly. The preceptor was physically present in the building during the encounter and was fully available as needed. All aspects of the patient interview, examination, medical decision making process, and medical care plan development were reviewed and approved by the preceptor. The preceptor is aware and concurs with the plan as stated in the body of this note and will attest to such by his/her co-signature. JOHN
[2016-12-28] MEDS ORDERED: FLEET ENEMA PR PRN (15:30)
[2016-12-28 22:00] VITALS: BP 134/68
[2016-12-28] MEDS: ASPIRIN 81 MG ENTERIC TAB PO SCH (22:16)
[2016-12-28] MEDS: METOPROLOL SUCC *XL* 12.5MG PER 1/2 TAB (TopROL *XL*) PO SCH (22:16)
[2016-12-28] MEDS: PANTOPRAZOLE 40MG TAB (PROTONIX) PO SCH (22:17)
[2016-12-28] MEDS: MULTIVITAMINS/MINERALS THERAP 1 TAB PO SCH (22:17)
[2016-12-29] MEDS: HEPARIN SOD (PORCINE) 5000 UNITS/ML VIAL SC SCH ×3 (05:50→21:00)
[2016-12-29] MEDS: LEVOTHYROXINE 0.075 MG TAB (75 MCG) PO SCH (05:50)
[2016-12-29] MEDS: PERCOCET 5MG/325MG TAB PO PRN ×3 (05:51→18:33)
[2016-12-29 06:00] VITALS: BP 131/74
[2016-12-29 06:44] LABS: MEAN CORPUSCULAR HEMOGLOBIN 30.1 pg (27.0-33.0); MEAN CORPUSCULAR HGB CONC 31.8 g/dl (32.0-36.5); MEAN CORPUSCULAR VOLUME 94.9 fl (80.0-96.0); RED CELL DISTRIBUTION WIDTH 13.5 % (11.5-14.5); WHITE BLOOD COUNT 10.2 K/mm3 (4.0-10.0)
[2016-12-29] MEDS: VIIBRYD 10 MG PO SCH (08:25)
[2016-12-29] MEDS: DIVALPROEX 500 MG TAB PO SCH ×2 (08:25→21:01)
[2016-12-29] MEDS: VITAMIN D 1,000 INTERNATIONAL UNITS TABLET PO SCH (08:25)
[2016-12-29] MEDS: lamoTRIgine 100MG TAB PO SCH (08:26)
[2016-12-29] MEDS: ROSUVASTATIN 10 MG TAB (CRESTOR) PO SCH (08:26)
[2016-12-29] MEDS: HumaLOG INSULIN (NovoLOG) PER UNIT SC SCH ×4 (08:26→21:00)
[2016-12-29] MEDS: clonazePAM 0.5 MG TAB PO SCH ×2 (08:26→21:01)
[2016-12-29 09:09] LABS: ANION GAP 6 MEQ/L (8-16); BLOOD UREA NITROGEN 15 MG/DL (7-18); CALCIUM LEVEL 8.6 MG/DL (8.8-10.2); CARBON DIOXIDE LEVEL 31 MEQ/L (21-32); CHLORIDE LEVEL 105 MEQ/L (98-107); CREATININE FOR GFR 0.83 MG/DL (0.55-1.02); GLOMERULAR FILTRATION RATE > 60.0 (>45); GLUCOSE, FASTING 152 MG/DL (80-110); POTASSIUM SERUM 3.9 MEQ/L (3.5-5.1); SODIUM LEVEL 142 MEQ/L (136-145)
[2016-12-29] MEDS: TOLTERODINE TARTRATE 2 MG LA CAP (DETROL LA) PO SCH ×2 (10:30→21:01)
[2016-12-29 15:38] VITALS: BP 131/83
[2016-12-29] MEDS: PANTOPRAZOLE 40MG TAB (PROTONIX) PO SCH (21:01)
[2016-12-29] MEDS: MULTIVITAMINS/MINERALS THERAP 1 TAB PO SCH (21:01)
[2016-12-29] MEDS: METOPROLOL SUCC *XL* 12.5MG PER 1/2 TAB (TopROL *XL*) PO SCH (21:01)
[2016-12-29] MEDS: ASPIRIN 81 MG ENTERIC TAB PO SCH (21:01)
[2016-12-29 22:00] VITALS: BP 134/67
[2016-12-30] MEDS: PERCOCET 5MG/325MG TAB PO PRN ×5 (05:48→22:33)
[2016-12-30] MEDS: HEPARIN SOD (PORCINE) 5000 UNITS/ML VIAL SC SCH ×3 (05:48→22:31)
[2016-12-30] MEDS: LEVOTHYROXINE 0.075 MG TAB (75 MCG) PO SCH (05:48)
[2016-12-30 06:00] VITALS: BP 128/62
[2016-12-30 07:00] LABS: ANION GAP 5 MEQ/L (8-16); BLOOD UREA NITROGEN 14 MG/DL (7-18); CALCIUM LEVEL 8.9 MG/DL (8.8-10.2); CARBON DIOXIDE LEVEL 30 MEQ/L (21-32); CHLORIDE LEVEL 107 MEQ/L (98-107); CREATININE FOR GFR 0.73 MG/DL (0.55-1.02); GLOMERULAR FILTRATION RATE > 60.0 (>45); GLUCOSE, FASTING 132 MG/DL (80-110); SODIUM LEVEL 142 MEQ/L (136-145)
[2016-12-30] MEDS: VIIBRYD 10 MG PO SCH (08:25)
[2016-12-30] MEDS: VITAMIN D 1,000 INTERNATIONAL UNITS TABLET PO SCH (08:25)
[2016-12-30] MEDS: ROSUVASTATIN 10 MG TAB (CRESTOR) PO SCH (08:25)
[2016-12-30] MEDS: clonazePAM 0.5 MG TAB PO SCH ×2 (08:25→22:34)
[2016-12-30] MEDS: HumaLOG INSULIN (NovoLOG) PER UNIT SC SCH ×4 (08:26→21:00)
[2016-12-30] MEDS: DIVALPROEX 500 MG TAB PO SCH ×2 (08:26→22:34)
[2016-12-30] MEDS: lamoTRIgine 100MG TAB PO SCH (08:26)
[2016-12-30] MEDS: TOLTERODINE TARTRATE 2 MG LA CAP (DETROL LA) PO SCH ×2 (08:26→22:31)
--- NOTE | 2016-12-30 10:18 | IPN ---
DATE: 12/29/2016 SUBJECTIVE: This is a 71-year-old female who is seen and examined at bedside. Overnight no reported acute events. This morning, denies any chest pain, shortness of breath, nausea, vomiting, diarrhea, constipation. Still reports back pain. Her appetite has somewhat improved. OBJECTIVE: VITAL SIGNS: Blood pressure 131/74. Heart rate 98. Respiratory rate 20. Pulse oximetry 93% on 2 liters nasal cannula. Temperature 98.2. INTAKE AND OUTPUT: In the last 24 hours, 600 and 400. Weight is 76.2. GENERAL: The patient is lying in the bed at a flat angle, comfortable, in no acute distress. Alert, awake, oriented times three. Cooperative. Pleasant. at bedside. HEENT: Normocephalic, atraumatic. Moist oral mucosa. Extraocular movements intact. Pupils equal and reactive to light. NECK: Supple. Trachea midline. No jugular venous distention (JVD). CHEST: Symmetric. No accessory muscle use. Breath sounds clear to auscultation bilaterally. HEART: Regular rate and rhythm with normal S1, S2. ABDOMEN: Soft. Nontender. Nondistended. Bowel sounds present. No guarding. No rebound. EXTREMITIES: No pedal edema. Pedal pulses present bilaterally. NEUROLOGIC: Strength is 4/5 in bilateral lower extremities secondary to pain. Sensory intact. PSYCHIATRIC: Pleasant, cooperative. LABORATORY DATA: WBC 10.2, hemoglobin 12.1, hematocrit 38, platelets 351. Sodium 142, potassium 3.9, chloride 105, carbon dioxide 31, BUN 15, creatinine 0.83, glucose 151, calcium 8.6. Fingerstick glucose has been reasonable at 127 to 159. IMPRESSION AND PLAN: Ms. Barrera is a 71-year-old female with history of Parkinson's disease who presented with low back pain and found to have L1 compression fracture. 1. L1 compression fracture. She continues to be doing physical therapy and occupational therapy. Physical medicine and rehabilitation (PM and R) screening and placement pending. The patient also expressed desire to go to subacute rehabilitation. Continue pain control. She is on Percocet 2 tablets every 4 hours as needed and also 1 tablet every 4 hours as needed. 2. Hypertension. Blood pressure continues to be within reasonable range. She is on her home dose of Toprol XL 12.5 mg daily. 3. Hyperlipidemia. Continue Crestor. 4. Hypothyroidism. Continue home dose of levothyroxine. 5. Type 2 diabetes. Continue insulin sliding scale. 6. Bipolar disorder. Continue lamotrigine and Depakote. 7. Anxiety and depression. Continue clonazepam and Viibryd. 8. Gastroesophageal reflux disease. Continue Protonix. 9. Obstructive sleep apnea. She had one episode of oxygen in the 88 range last night. Continue to monitor respiratory status. She is on obstructive sleep apnea protocol. Have discussed with both patient and that she will need to resume her CPAP machine on an outpatient basis to prevent worsening of her obstructive sleep apnea. 10. Vitamin D deficiency. Continue vitamin D supplementation. 11. Deep vein thrombosis (DVT) prophylaxis with sequential compression devices (SCDS), thromboembolic deterrent stockings (TEDS) and heparin. Disposition. Awaiting PMR or subacute placement. My preceptor for this patient encounter was Dr. Connolly. The preceptor was physically present in the building during the encounter and was fully available. As needed, all aspects of the patient interview, examination, medical decision making process, and medical care plan development were reviewed and approved by the preceptor. The preceptor is aware and concurs with the plan as stated in the body of this note and will attest to such by his/her cosignature. JOHN
--- NOTE | 2016-12-30 12:50 | IPNPDOC ---
Subjective Date Seen The patient was seen on 12/30/16. Subjective Chief Complaint/HPI The patient is a 71-year-old female admitted with a reason for visit of Intractable Back Pain. General: Denies: Chills, Night Sweats Constitutional: Denies: Chills, Fever Eyes: Denies: Pain, Vision change ENT: Denies: Head Aches, Ear Pain Skin: Denies: Rash, Lesions Pulmonary: Denies: Dyspnea, Cough Cardiovascular: Denies: Chest Pain, Palpitations Gastrointestinal: Denies: Nausea, Vomiting Genitourinary: Denies: Dysuria, Frequency Hematologic: Denies: Bruising, Bleeding Excessively Musculoskeletal: Reports: Back Pain Objective Physical Examination General Exam: Positive: Alert, Cooperative, No Acute Distress ENT Exam: Positive: Atraumatic, Mucous membr. moist/pink Neck Exam: Negative: JVD Chest Exam: Positive: Clear to auscultation, Normal air movement Heart Exam: Positive: Rate Normal, Normal S1, Normal S2 Abdomen Exam: Positive: Soft, Negative: Tenderness Extremity Exam: Negative: Tenderness, Swelling Neuro Exam: Positive: Sensation Intact Psych Exam: Positive: Oriented x 3 Assessment /Plan Plan/VTE VTE Prophylaxis Ordered?: Yes Plan Intractable Back Pain 2/2 L1 compression fracture Orthopedic consultation appreciated-recommendation of Lena brace, progressive mobilization noted Pain management input appreciated Continue physical therapy and occupational therapy Will follow up with PFS regarding short-term rehabilitation placement Hypertension, stable Continue Toprol XL 12.5 mg at bedtime. Hyperlipidemia Continue Crestor Hypothyroidism Continue levothyroxine. Type 2 diabetes Continue insulin sliding scale. Bipolar disorder Cont Lamotrigine Anxiety/depression Continue clonazepam and Viibryd. Gastroesophageal reflux disease (GERD) Continue Prevacid. History of Parkinson's disease. Obstructive sleep apnea (GUME) GUME protocol The patient is a high risk for apnea given her dosing of narcotics and benzodiazepines Vitamin D deficiency Continue vitamin supplementation. Deep venous thrombosis (DVT) prophylaxis (TEDs) and heparin ordered DISPOSITION: Will follow up with PFS regarding possible short-term rehabilitation placement VS, I&O, 24H, Fishbone Vital Signs/I&O Vital Signs Date Time Temp Pulse Resp B/P (MAP) Pulse Ox O2 Delivery O2 Flow Rate FiO2 12/30/16 10:58 14 12/30/16 07:47 Nasal Cannula 1.0 12/30/16 06:00 97.5 96 128/62 (84) 92 I&O- Last 24 Hours up to 6 AM 12/30/16 06:00 Intake Total 900 ml Output Total 400 ml Balance 500 ml Laboratory Data 24H LABS Laboratory Tests 2 12/29/16 17:14: Bedside Glucose (Misc Panel) 131H 12/29/16 20:53: Bedside Glucose (Misc Panel) 156H 12/30/16 06:29: Anion Gap 5L, Glomerular Filtration Rate > 60.0, Blood Urea Nitrogen 14, Creatinine 0.73, Sodium Level 142, Potassium Level 4.0, Chloride Level 107, Carbon Dioxide Level 30, Calcium Level 8.9 12/30/16 07:07: Bedside Glucose (Misc Panel) 150H 12/30/16 11:19: Bedside Glucose (Misc Panel) 170H CBC/BMP Laboratory Tests 12/30/16 06:29 Calcium Level 8.9 Microbiology Microbiology 12/22/16 Urine Culture - Final, Complete SKY HARRIS MD Dec 30, 2016 12:50
[2016-12-30 14:00] VITALS: BP 121/66
[2016-12-30 22:00] VITALS: BP 155/86
[2016-12-30] MEDS: traZODone 25MG PER 1/2 TABLET PO PRN (22:33)
[2016-12-30] MEDS: METOPROLOL SUCC *XL* 12.5MG PER 1/2 TAB (TopROL *XL*) PO SCH (22:33)
[2016-12-30] MEDS: PANTOPRAZOLE 40MG TAB (PROTONIX) PO SCH (22:34)
[2016-12-30] MEDS: ASPIRIN 81 MG ENTERIC TAB PO SCH (22:34)
[2016-12-30] MEDS: MULTIVITAMINS/MINERALS THERAP 1 TAB PO SCH (22:35)
[2016-12-31] MEDS: LEVOTHYROXINE 0.075 MG TAB (75 MCG) PO SCH (05:36)
[2016-12-31] MEDS: PERCOCET 5MG/325MG TAB PO PRN ×5 (05:37→21:43)
[2016-12-31] MEDS: HEPARIN SOD (PORCINE) 5000 UNITS/ML VIAL SC SCH ×3 (05:37→22:24)
[2016-12-31 06:00] VITALS: BP 127/65
[2016-12-31 07:11] LABS: ANION GAP 7 MEQ/L (8-16); BLOOD UREA NITROGEN 13 MG/DL (7-18); CALCIUM LEVEL 8.8 MG/DL (8.8-10.2); CARBON DIOXIDE LEVEL 29 MEQ/L (21-32); CHLORIDE LEVEL 109 MEQ/L (98-107); CREATININE FOR GFR 0.76 MG/DL (0.55-1.02); GLOMERULAR FILTRATION RATE > 60.0 (>45); GLUCOSE, FASTING 112 MG/DL (80-110); POTASSIUM SERUM 4.3 MEQ/L (3.5-5.1); SODIUM LEVEL 145 MEQ/L (136-145)
[2016-12-31] MEDS ORDERED: BISACODYL 10 MG SUPP PR ONE (08:00)
[2016-12-31] MEDS: VITAMIN D 1,000 INTERNATIONAL UNITS TABLET PO SCH (09:14)
[2016-12-31] MEDS: clonazePAM 0.5 MG TAB PO SCH ×2 (09:14→22:24)
[2016-12-31] MEDS: TOLTERODINE TARTRATE 2 MG LA CAP (DETROL LA) PO SCH ×2 (09:14→22:26)
[2016-12-31] MEDS: SENOKOT S TAB PO PRN (09:14)
[2016-12-31] MEDS: DIVALPROEX 500 MG TAB PO SCH ×2 (09:14→22:24)
[2016-12-31] MEDS: lamoTRIgine 100MG TAB PO SCH (09:14)
[2016-12-31] MEDS: MOM 30ML SUSPENSION UDC PO PRN (09:14)
[2016-12-31] MEDS: VIIBRYD 10 MG PO SCH (09:15)
[2016-12-31] MEDS: ROSUVASTATIN 10 MG TAB (CRESTOR) PO SCH (09:15)
[2016-12-31] MEDS: HumaLOG INSULIN (NovoLOG) PER UNIT SC SCH ×4 (09:17→21:00)
[2016-12-31 14:00] VITALS: BP 136/64
--- NOTE | 2016-12-31 14:24 | IPNPDOC ---
Subjective Date Seen The patient was seen on 12/31/16. Subjective Chief Complaint/HPI The patient is a 71-year-old female admitted with a reason for visit of Intractable Back Pain. General: Denies: Chills, Night Sweats Constitutional: Denies: Chills, Fever Eyes: Denies: Pain, Vision change ENT: Denies: Head Aches, Ear Pain Skin: Denies: Rash, Lesions Pulmonary: Denies: Dyspnea, Cough Cardiovascular: Denies: Chest Pain, Palpitations Gastrointestinal: Denies: Nausea, Vomiting Genitourinary: Denies: Dysuria, Frequency Hematologic: Denies: Bruising, Bleeding Excessively Objective Physical Examination General Exam: Positive: Alert, Cooperative, No Acute Distress ENT Exam: Positive: Atraumatic, Mucous membr. moist/pink Neck Exam: Negative: JVD Chest Exam: Positive: Clear to auscultation, Normal air movement Heart Exam: Positive: Rate Normal, Normal S1, Normal S2 Abdomen Exam: Positive: Soft, Negative: Tenderness Extremity Exam: Negative: Tenderness, Swelling Neuro Exam: Positive: Sensation Intact Psych Exam: Positive: Oriented x 3 Assessment /Plan Plan/VTE VTE Prophylaxis Ordered?: Yes Plan Intractable Back Pain 2/2 L1 compression fracture Orthopedic consultation appreciated-recommendation of Teja brace, progressive mobilization noted Pain management input appreciated Continue physical therapy and occupational therapy Will follow up with PFS regarding short-term rehabilitation placement Hypertension, stable Continue Toprol XL 12.5 mg at bedtime. Hyperlipidemia Continue Crestor Hypothyroidism Continue levothyroxine. Type 2 diabetes Continue insulin sliding scale. Bipolar disorder Cont Lamotrigine Anxiety/depression Continue clonazepam and Viibryd. Gastroesophageal reflux disease (GERD) Continue Prevacid. History of Parkinson's disease. Obstructive sleep apnea (GUME) GUME protocol The patient is a high risk for apnea given her dosing of narcotics and benzodiazepines Vitamin D deficiency Continue vitamin supplementation. Deep venous thrombosis (DVT) prophylaxis (TEDs) and heparin ordered DISPOSITION: Will follow up with PFS regarding possible short-term rehabilitation placement VS, I&O, 24H, [place] Vital Signs/I&O Vital Signs Date Time Temp Pulse Resp B/P (MAP) Pulse Ox O2 Delivery O2 Flow Rate FiO2 12/31/16 13:22 18 12/31/16 06:07 94 Nasal Cannula 12/31/16 06:00 98.2 92 127/65 (85) 2.0 I&O- Last 24 Hours up to 6 AM 12/31/16 06:00 Intake Total 690 ml Output Total 700 ml Balance -10 ml Laboratory Data 24H LABS Laboratory Tests 2 12/30/16 16:48: Bedside Glucose (Misc Panel) 145H 12/30/16 21:14: Bedside Glucose (Misc Panel) 209H 12/31/16 06:10: Anion Gap 7L, Glomerular Filtration Rate > 60.0, Blood Urea Nitrogen 13, Creatinine 0.76, Sodium Level 145, Potassium Level 4.3, Chloride Level 109H, Carbon Dioxide Level 29, Calcium Level 8.8 12/31/16 06:33: Bedside Glucose (Misc Panel) 133H 12/31/16 11:42: Bedside Glucose (Misc Panel) 195H CBC/BMP Laboratory Tests 12/31/16 06:10 Calcium Level 8.8 Microbiology Microbiology 12/22/16 Urine Culture - Final, Complete SKY HARRIS MD December 31, 2016 14:24
[2016-12-31 22:00] VITALS: BP 144/68
[2016-12-31] MEDS: PANTOPRAZOLE 40MG TAB (PROTONIX) PO SCH (22:24)
[2016-12-31] MEDS: METOPROLOL SUCC *XL* 12.5MG PER 1/2 TAB (TopROL *XL*) PO SCH (22:25)
[2016-12-31] MEDS: ASPIRIN 81 MG ENTERIC TAB PO SCH (22:25)
[2016-12-31] MEDS: MULTIVITAMINS/MINERALS THERAP 1 TAB PO SCH (22:26)
[2016-12-31] MEDS: traZODone 25MG PER 1/2 TABLET PO PRN (22:37)
[2017-01-01 06:00] VITALS: BP 124/68
[2017-01-01] MEDS: PERCOCET 5MG/325MG TAB PO PRN ×4 (06:20→21:46)
[2017-01-01] MEDS: LEVOTHYROXINE 0.075 MG TAB (75 MCG) PO SCH (06:21)
[2017-01-01] MEDS: HEPARIN SOD (PORCINE) 5000 UNITS/ML VIAL SC SCH ×3 (06:21→21:51)
[2017-01-01 08:12] LABS: ANION GAP 6 MEQ/L (8-16); BLOOD UREA NITROGEN 12 MG/DL (7-18); CALCIUM LEVEL 9.3 MG/DL (8.8-10.2); CARBON DIOXIDE LEVEL 30 MEQ/L (21-32); CHLORIDE LEVEL 107 MEQ/L (98-107); CREATININE FOR GFR 0.81 MG/DL (0.55-1.02); GLOMERULAR FILTRATION RATE > 60.0 (>45); GLUCOSE, FASTING 136 MG/DL (80-110); POTASSIUM SERUM 4.7 MEQ/L (3.5-5.1); SODIUM LEVEL 143 MEQ/L (136-145)
[2017-01-01] MEDS: HumaLOG INSULIN (NovoLOG) PER UNIT SC SCH ×4 (09:57→21:00)
[2017-01-01] MEDS: VITAMIN D 1,000 INTERNATIONAL UNITS TABLET PO SCH (09:58)
[2017-01-01] MEDS: ROSUVASTATIN 10 MG TAB (CRESTOR) PO SCH (09:58)
[2017-01-01] MEDS: lamoTRIgine 100MG TAB PO SCH (09:58)
[2017-01-01] MEDS: VIIBRYD 10 MG PO SCH (09:58)
[2017-01-01] MEDS: TOLTERODINE TARTRATE 2 MG LA CAP (DETROL LA) PO SCH ×2 (09:59→21:44)
[2017-01-01] MEDS: clonazePAM 0.5 MG TAB PO SCH ×2 (09:59→21:44)
[2017-01-01] MEDS: DIVALPROEX 500 MG TAB PO SCH ×2 (09:59→21:44)
--- NOTE | 2017-01-01 11:38 | IPNPDOC ---
Subjective Date Seen The patient was seen on 01/01/17. Subjective Chief Complaint/HPI The patient is a 71-year-old female admitted with a reason for visit of Intractable Back Pain. General: Denies: Chills, Night Sweats Constitutional: Denies: Chills, Fever Eyes: Denies: Pain, Vision change ENT: Denies: Head Aches, Ear Pain Skin: Denies: Rash, Lesions Pulmonary: Denies: Dyspnea, Cough Cardiovascular: Denies: Chest Pain, Palpitations Gastrointestinal: Denies: Nausea, Vomiting Genitourinary: Denies: Dysuria, Frequency Hematologic: Denies: Bruising, Bleeding Excessively Musculoskeletal: Reports: Back Pain Objective Physical Examination General Exam: Positive: Alert, Cooperative, No Acute Distress ENT Exam: Positive: Atraumatic, Mucous membr. moist/pink Neck Exam: Negative: JVD Chest Exam: Positive: Clear to auscultation, Normal air movement Heart Exam: Positive: Rate Normal, Normal S1, Normal S2 Abdomen Exam: Positive: Soft, Negative: Tenderness Extremity Exam: Negative: Tenderness, Swelling Neuro Exam: Positive: Sensation Intact Psych Exam: Positive: Oriented x 3 Assessment /Plan Plan/VTE VTE Prophylaxis Ordered?: Yes Plan Intractable Back Pain 2/2 L1 compression fracture Orthopedic consultation appreciated-recommendation of [place] brace, progressive mobilization noted Pain management input appreciated Continue physical therapy and occupational therapy Will follow up with PFS regarding short-term rehabilitation placement Hypertension, stable Continue Toprol XL 12.5 mg at bedtime. Hyperlipidemia Continue Crestor Hypothyroidism Continue levothyroxine. Type 2 diabetes Continue insulin sliding scale. Bipolar disorder Cont Lamotrigine Anxiety/depression Continue clonazepam and Viibryd. Gastroesophageal reflux disease (GERD) Continue Prevacid. History of Parkinson's disease. Obstructive sleep apnea (GUME) GUME protocol The patient is a high risk for apnea given her dosing of narcotics and benzodiazepines Vitamin D deficiency Continue vitamin supplementation. Deep venous thrombosis (DVT) prophylaxis (TEDs) and heparin ordered DISPOSITION: Will follow up with PFS regarding possible short-term rehabilitation placement VS, I&O, 24H, Fishbone Vital Signs/I&O Vital Signs Date Time Temp Pulse Resp B/P (MAP) Pulse Ox O2 Delivery O2 Flow Rate FiO2 01/01/17 06:50 18 96 Nasal Cannula 1.0 01/01/17 06:00 97.9 95 124/68 (86) I&O- Last 24 Hours up to 6 AM 01/01/17 06:00 Intake Total 1020 ml Output Total 200 ml Balance 820 ml Laboratory Data 24H LABS Laboratory Tests 2 12/31/16 11:42: Bedside Glucose (Misc Panel) 195H 12/31/16 17:00: Bedside Glucose (Misc Panel) 169H 12/31/16 19:59: Bedside Glucose (Misc Panel) 128H 01/01/17 07:15: Anion Gap 6L, Glomerular Filtration Rate > 60.0, Blood Urea Nitrogen 12, Creatinine 0.81, Sodium Level 143, Potassium Level 4.7, Chloride Level 107, Carbon Dioxide Level 30, Calcium Level 9.3 CBC/BMP Laboratory Tests 01/01/17 07:15 Calcium Level 9.3 Microbiology Microbiology 12/22/16 Urine Culture - Final, Complete SKY HARRIS MD January 01, 2017 11:37
[2017-01-01 14:00] VITALS: BP 125/75
[2017-01-01] MEDS: ASPIRIN 81 MG ENTERIC TAB PO SCH (21:43)
[2017-01-01] MEDS: diphenhydrAMINE 25 MG CAP PO SCH (21:43)
[2017-01-01] MEDS: PANTOPRAZOLE 40MG TAB (PROTONIX) PO SCH (21:44)
[2017-01-01] MEDS: MULTIVITAMINS/MINERALS THERAP 1 TAB PO SCH (21:44)
[2017-01-01] MEDS: METOPROLOL SUCC *XL* 12.5MG PER 1/2 TAB (TopROL *XL*) PO SCH (21:50)
[2017-01-01 22:00] VITALS: BP 129/72
[2017-01-02 06:00] VITALS: BP 119/71
[2017-01-02] MEDS: LEVOTHYROXINE 0.075 MG TAB (75 MCG) PO SCH (06:24)
[2017-01-02] MEDS: PERCOCET 5MG/325MG TAB PO PRN ×4 (06:25→20:57)
[2017-01-02] MEDS: HEPARIN SOD (PORCINE) 5000 UNITS/ML VIAL SC SCH ×3 (06:26→20:50)
[2017-01-02 06:50] LABS: MEAN CORPUSCULAR HEMOGLOBIN 30.5 pg (27.0-33.0); MEAN CORPUSCULAR HGB CONC 31.7 g/dl (32.0-36.5); MEAN CORPUSCULAR VOLUME 96.3 fl (80.0-96.0); RED CELL DISTRIBUTION WIDTH 13.7 % (11.5-14.5); WHITE BLOOD COUNT 11.6 K/mm3 (4.0-10.0)
[2017-01-02 07:06] LABS: ANION GAP 6 MEQ/L (8-16); BLOOD UREA NITROGEN 15 MG/DL (7-18); CALCIUM LEVEL 9.1 MG/DL (8.8-10.2); CARBON DIOXIDE LEVEL 29 MEQ/L (21-32); CHLORIDE LEVEL 109 MEQ/L (98-107); CREATININE FOR GFR 0.84 MG/DL (0.55-1.02); GLOMERULAR FILTRATION RATE > 60.0 (>45); GLUCOSE, FASTING 118 MG/DL (80-110); POTASSIUM SERUM 4.4 MEQ/L (3.5-5.1); SODIUM LEVEL 144 MEQ/L (136-145)
[2017-01-02] MEDS: HumaLOG INSULIN (NovoLOG) PER UNIT SC SCH ×4 (08:28→20:52)
[2017-01-02] MEDS: ROSUVASTATIN 10 MG TAB (CRESTOR) PO SCH (08:29)
[2017-01-02] MEDS: TOLTERODINE TARTRATE 2 MG LA CAP (DETROL LA) PO SCH ×2 (08:29→21:05)
[2017-01-02] MEDS: clonazePAM 0.5 MG TAB PO SCH ×2 (08:29→20:51)
[2017-01-02] MEDS: VITAMIN D 1,000 INTERNATIONAL UNITS TABLET PO SCH (08:29)
[2017-01-02] MEDS: MOM 30ML SUSPENSION UDC PO PRN (08:29)
[2017-01-02] MEDS: lamoTRIgine 100MG TAB PO SCH (08:30)
[2017-01-02] MEDS: DIVALPROEX 500 MG TAB PO SCH ×2 (08:30→20:51)
[2017-01-02] MEDS: SENOKOT S TAB PO PRN (08:30)
[2017-01-02] MEDS: VIIBRYD 10 MG PO SCH (08:31)
[2017-01-02] MEDS ORDERED: METOCLOPRAMIDE 5 MG TAB PO PRN (10:30)
--- NOTE | 2017-01-02 12:41 | IPNPDOC ---
Subjective Date Seen The patient was seen on 01/02/17. Subjective Chief Complaint/HPI The patient is a 71-year-old female admitted with a reason for visit of Intractable Back Pain. General: Denies: Chills, Night Sweats Constitutional: Denies: Chills, Fever Eyes: Denies: Pain, Vision change ENT: Denies: Head Aches, Ear Pain Skin: Denies: Rash, Lesions Pulmonary: Denies: Dyspnea, Cough Cardiovascular: Denies: Chest Pain, Palpitations Gastrointestinal: Denies: Nausea, Vomiting Genitourinary: Denies: Dysuria, Frequency Hematologic: Denies: Bruising, Bleeding Excessively Musculoskeletal: Denies: Neck Pain Objective Physical Examination General Exam: Positive: Alert, Cooperative, No Acute Distress ENT Exam: Positive: Atraumatic, Mucous membr. moist/pink Neck Exam: Negative: JVD Chest Exam: Positive: Clear to auscultation, Normal air movement Heart Exam: Positive: Rate Normal, Normal S1, Normal S2 Abdomen Exam: Positive: Soft, Negative: Tenderness Extremity Exam: Negative: Tenderness, Swelling Neuro Exam: Positive: Sensation Intact Psych Exam: Positive: Oriented x 3 Assessment /Plan Plan/VTE VTE Prophylaxis Ordered?: Yes Plan Intractable Back Pain 2/2 L1 compression fracture Orthopedic consultation appreciated-recommendation of [place] brace, progressive mobilization noted Pain management input appreciated Continue physical therapy and occupational therapy Will follow up with PFS regarding short-term rehabilitation placement Leukocytosis of Unclear Etiology Possibly Stress/Pain Induced from L1 Compression? Patient remains afebrile without any acute complaints or overt signs of infection We will continue to monitor Hypertension, stable Continue Toprol XL 12.5 mg at bedtime. Hyperlipidemia Continue Crestor Hypothyroidism Continue levothyroxine. Type 2 diabetes Continue insulin sliding scale. Bipolar disorder Cont Lamotrigine Anxiety/depression Continue clonazepam and Viibryd. Gastroesophageal reflux disease (GERD) Continue Prevacid. History of Parkinson's disease. Obstructive sleep apnea (GUME) GUME protocol The patient is a high risk for apnea given her dosing of narcotics and benzodiazepines Vitamin D deficiency Continue vitamin supplementation. Deep venous thrombosis (DVT) prophylaxis (TEDs) and heparin ordered DISPOSITION: Will follow up with PFS regarding possible short-term rehabilitation placement VS, I&O, 24H, Fishbone Vital Signs/I&O Vital Signs Date Time Temp Pulse Resp B/P (MAP) Pulse Ox O2 Delivery O2 Flow Rate FiO2 01/02/17 11:57 18 01/02/17 07:36 Nasal Cannula 1.0 01/02/17 06:55 94 01/02/17 06:25 91 01/02/17 06:00 98.0 94 119/71 (87) I&O- Last 24 Hours up to 6 AM 01/02/17 06:00 Intake Total 1320 ml Output Total 300 ml Balance 1020 ml Laboratory Data 24H LABS Laboratory Tests 2 01/01/17 16:21: Bedside Glucose (Misc Panel) 206H 01/01/17 19:51: Bedside Glucose (Misc Panel) 186H 01/02/17 06:21: Anion Gap 6L, Glomerular Filtration Rate > 60.0, Blood Urea Nitrogen 15, Creatinine 0.84, Sodium Level 144, Potassium Level 4.4, Chloride Level 109H, Carbon Dioxide Level 29, Calcium Level 9.1 01/02/17 11:42: Bedside Glucose (Misc Panel) 201H CBC/BMP Laboratory Tests 01/02/17 06:21 Calcium Level 9.1 01/02/17 06:22 Red Blood Count 4.05, Mean Corpuscular Volume 96.3 H, Mean Corpuscular Hemoglobin 30.5, Mean Corpuscular Hemoglobin Concent 31.7 L, Red Cell Distribution Width 13.7 SKY HARRIS MD January 02, 2017 12:41
[2017-01-02 14:00] VITALS: BP 132/61
[2017-01-02] MEDS ORDERED: SALIVA SUBSTITUTE(MOUTHKOTE) BTL MT PRN (14:30)
[2017-01-02] MEDS: METOPROLOL SUCC *XL* 12.5MG PER 1/2 TAB (TopROL *XL*) PO SCH (20:51)
[2017-01-02] MEDS: PANTOPRAZOLE 40MG TAB (PROTONIX) PO SCH (20:51)
[2017-01-02] MEDS: MULTIVITAMINS/MINERALS THERAP 1 TAB PO SCH (20:51)
[2017-01-02] MEDS: diphenhydrAMINE 25 MG CAP PO SCH (20:51)
[2017-01-02] MEDS: ASPIRIN 81 MG ENTERIC TAB PO SCH (20:51)
[2017-01-02 22:00] VITALS: BP 128/59
[2017-01-03] MEDS: PERCOCET 5MG/325MG TAB PO PRN ×5 (03:38→22:06)
[2017-01-03] MEDS: HEPARIN SOD (PORCINE) 5000 UNITS/ML VIAL SC SCH ×3 (05:56→20:54)
[2017-01-03] MEDS: LEVOTHYROXINE 0.075 MG TAB (75 MCG) PO SCH (05:56)
[2017-01-03 06:00] VITALS: BP 120/70
[2017-01-03 06:51] LABS: MEAN CORPUSCULAR HEMOGLOBIN 30.5 pg (27.0-33.0); MEAN CORPUSCULAR HGB CONC 30.9 g/dl (32.0-36.5); MEAN CORPUSCULAR VOLUME 98.6 fl (80.0-96.0); RED CELL DISTRIBUTION WIDTH 13.7 % (11.5-14.5); WHITE BLOOD COUNT 8.1 K/mm3 (4.0-10.0)
[2017-01-03 07:07] LABS: ANION GAP 9 MEQ/L (8-16); BLOOD UREA NITROGEN 12 MG/DL (7-18); CALCIUM LEVEL 8.6 MG/DL (8.8-10.2); CARBON DIOXIDE LEVEL 28 MEQ/L (21-32); CHLORIDE LEVEL 106 MEQ/L (98-107); CREATININE FOR GFR 0.79 MG/DL (0.55-1.02); GLOMERULAR FILTRATION RATE > 60.0 (>45); GLUCOSE, FASTING 130 MG/DL (80-110); POTASSIUM SERUM 4.8 MEQ/L (3.5-5.1); SODIUM LEVEL 143 MEQ/L (136-145)
[2017-01-03] MEDS: VIIBRYD 10 MG PO SCH (08:59)
[2017-01-03] MEDS: ROSUVASTATIN 10 MG TAB (CRESTOR) PO SCH (08:59)
[2017-01-03] MEDS: HumaLOG INSULIN (NovoLOG) PER UNIT SC SCH ×4 (08:59→20:54)
[2017-01-03] MEDS: TOLTERODINE TARTRATE 2 MG LA CAP (DETROL LA) PO SCH ×2 (09:00→20:53)
[2017-01-03] MEDS: DIVALPROEX 500 MG TAB PO SCH ×2 (09:00→20:54)
[2017-01-03] MEDS: clonazePAM 0.5 MG TAB PO SCH ×2 (09:00→20:54)
[2017-01-03] MEDS: lamoTRIgine 100MG TAB PO SCH (09:00)
[2017-01-03] MEDS: VITAMIN D 1,000 INTERNATIONAL UNITS TABLET PO SCH (09:00)
--- NOTE | 2017-01-03 11:09 | IPNPDOC ---
Subjective Date Seen The patient was seen on 01/03/17. Subjective Chief Complaint/HPI The patient is a 71-year-old female admitted with a reason for visit of Intractable Back Pain. General: Denies: Chills, Night Sweats Constitutional: Denies: Chills, Fever Eyes: Denies: Pain, Vision change ENT: Denies: Head Aches, Ear Pain Skin: Denies: Rash, Lesions Pulmonary: Denies: Dyspnea, Cough Cardiovascular: Denies: Chest Pain, Palpitations Gastrointestinal: Denies: Nausea, Vomiting Genitourinary: Denies: Dysuria, Frequency Hematologic: Denies: Bruising, Bleeding Excessively Musculoskeletal: Reports: Back Pain Objective Physical Examination General Exam: Positive: Alert, Cooperative, No Acute Distress ENT Exam: Positive: Atraumatic, Mucous membr. moist/pink Neck Exam: Negative: JVD Chest Exam: Positive: Clear to auscultation, Normal air movement Heart Exam: Positive: Rate Normal, Normal S1, Normal S2 Abdomen Exam: Positive: Soft Extremity Exam: Negative: Tenderness, Swelling Neuro Exam: Positive: Sensation Intact Psych Exam: Positive: Oriented x 3 Assessment /Plan Plan/VTE VTE Prophylaxis Ordered?: Yes Plan Intractable Back Pain 2/2 L1 compression fracture Orthopedic consultation appreciated-recommendation of [place] brace, progressive mobilization noted Pain management input appreciated Continue physical therapy and occupational therapy Will follow up with PFS regarding short-term rehabilitation placement Leukocytosis of Unclear Etiology, resolved Possibly Stress/Pain Induced from L1 Compression? Patient remains afebrile without any acute complaints or overt signs of infection We will continue to monitor Hypertension, stable Continue Toprol XL 12.5 mg at bedtime. Hyperlipidemia Continue Crestor Hypothyroidism Continue levothyroxine. Type 2 diabetes Continue insulin sliding scale. Bipolar disorder Cont Lamotrigine Anxiety/depression Continue clonazepam and Viibryd. Gastroesophageal reflux disease (GERD) Continue Prevacid. History of Parkinson's disease. Obstructive sleep apnea (GUME) GUME protocol The patient is a high risk for apnea given her dosing of narcotics and benzodiazepines Vitamin D deficiency Continue vitamin supplementation. Deep venous thrombosis (DVT) prophylaxis (TEDs) and heparin ordered DISPOSITION: Will follow up with PFS regarding possible short-term rehabilitation placement VS, I&O, 24H, Fishbone Vital Signs/I&O Vital Signs Date Time Temp Pulse Resp B/P (MAP) Pulse Ox O2 Delivery O2 Flow Rate FiO2 01/03/17 11:01 Nasal Cannula 1.0 01/03/17 09:30 20 01/03/17 06:00 97.6 90 120/70 (87) 94 01/02/17 06:55 94 I&O- Last 24 Hours up to 6 AM 01/03/17 05:59 Intake Total 600 ml Output Total 700 ml Balance -100 ml Laboratory Data 24H LABS Laboratory Tests 2 01/02/17 11:42: Bedside Glucose (Misc Panel) 201H 01/02/17 16:30: Bedside Glucose (Misc Panel) 134H 01/02/17 20:09: Bedside Glucose (Misc Panel) 171H 01/03/17 06:28: Anion Gap 9, Glomerular Filtration Rate > 60.0, Blood Urea Nitrogen 12, Creatinine 0.79, Sodium Level 143, Potassium Level 4.8, Chloride Level 106, Carbon Dioxide Level 28, Calcium Level 8.6L CBC/BMP Laboratory Tests 01/03/17 06:27 Red Blood Count 4.13, Mean Corpuscular Volume 98.6 H, Mean Corpuscular Hemoglobin 30.5, Mean Corpuscular Hemoglobin Concent 30.9 L, Red Cell Distribution Width 13.7 01/03/17 06:28 Calcium Level 8.6 L SKY HARRIS MD January 03, 2017 11:09
[2017-01-03 14:00] VITALS: BP 133/74
--- NOTE | 2017-01-03 19:16 | REP ---
SUPINE ABDOMEN: 01/03/2017: Comparison: CT abdomen pelvis 12/24/2016, abdominal flat plate 09/07/2012. Clinical history: Abdominal pain. Findings. Scattered stool cecum and right colon and limited amounts in the transverse and left colon. No dilated loops or sign of obstruction. There are small bowel loops scattered with gas but no dilatation. The pelvic phleboliths are seen. There are degenerative changes in the spine. Appears to be a calcification over the lower pole right kidney which could be renal or mesenteric. Degenerative changes lower lumbar spine and hips. Impression: 1. No sign of obstruction or mass. There are degenerative changes in the spine and hips. 2. Question of a lower pole renal stone versus other calcification in the abdomen. Based on the absence of any calcifications within the kidney on the CT, 10 days ago, this is most likely bowel content. Signed by Javier Baltazar MD 01/03/2017 07:51 P
[2017-01-03 20:53] VITALS: BP 129/75
[2017-01-03] MEDS: METOPROLOL SUCC *XL* 12.5MG PER 1/2 TAB (TopROL *XL*) PO SCH (20:53)
[2017-01-03] MEDS: PANTOPRAZOLE 40MG TAB (PROTONIX) PO SCH (20:54)
[2017-01-03] MEDS: ASPIRIN 81 MG ENTERIC TAB PO SCH (20:54)
[2017-01-03] MEDS: MULTIVITAMINS/MINERALS THERAP 1 TAB PO SCH (20:54)
[2017-01-03] MEDS: diphenhydrAMINE 25 MG CAP PO SCH (20:54)
[2017-01-03 22:00] VITALS: BP 129/75
[2017-01-04] MEDS: PERCOCET 5MG/325MG TAB PO PRN ×3 (03:37→12:50)
[2017-01-04] MEDS: HEPARIN SOD (PORCINE) 5000 UNITS/ML VIAL SC SCH (05:50)
[2017-01-04] MEDS: LEVOTHYROXINE 0.075 MG TAB (75 MCG) PO SCH (05:50)
[2017-01-04 06:00] VITALS: BP 119/75
[2017-01-04 06:36] LABS: MEAN CORPUSCULAR HEMOGLOBIN 30.2 pg (27.0-33.0); MEAN CORPUSCULAR HGB CONC 31.4 g/dl (32.0-36.5); MEAN CORPUSCULAR VOLUME 96.2 fl (80.0-96.0); RED CELL DISTRIBUTION WIDTH 13.9 % (11.5-14.5); WHITE BLOOD COUNT 8.2 K/mm3 (4.0-10.0)
[2017-01-04 07:02] LABS: ANION GAP 7 MEQ/L (8-16); BLOOD UREA NITROGEN 12 MG/DL (7-18); CARBON DIOXIDE LEVEL 30 MEQ/L (21-32); CHLORIDE LEVEL 106 MEQ/L (98-107); CREATININE FOR GFR 0.76 MG/DL (0.55-1.02); GLOMERULAR FILTRATION RATE > 60.0 (>45); GLUCOSE, FASTING 131 MG/DL (80-110); POTASSIUM SERUM 4.7 MEQ/L (3.5-5.1); SODIUM LEVEL 143 MEQ/L (136-145)
[2017-01-04] MEDS: VITAMIN D 1,000 INTERNATIONAL UNITS TABLET PO SCH (07:54)
[2017-01-04] MEDS: clonazePAM 0.5 MG TAB PO SCH (07:54)
[2017-01-04] MEDS: TOLTERODINE TARTRATE 2 MG LA CAP (DETROL LA) PO SCH (07:54)
[2017-01-04] MEDS: ROSUVASTATIN 10 MG TAB (CRESTOR) PO SCH (07:54)
[2017-01-04] MEDS: VIIBRYD 10 MG PO SCH (07:54)
[2017-01-04] MEDS: lamoTRIgine 100MG TAB PO SCH (07:54)
[2017-01-04] MEDS: DIVALPROEX 500 MG TAB PO SCH (07:55)
[2017-01-04] MEDS: HumaLOG INSULIN (NovoLOG) PER UNIT SC SCH ×2 (07:55→12:50)
[2017-01-04] MEDS ORDERED: PERCOCET PO (12:00)
--- NOTE | 2017-01-04 15:52 | DS.PDOC ---
Discharge Summary General Date of Admission Dec 22, 2016 at 16:46 Date of Discharge 01/04/17 Specialist/Consultants Involve: Karol Chaudhari Specialist/Consultants Involve Dr. Bladimir Pascual spinal surgery Discharge Summary PROCEDURES PERFORMED DURING STAY: None. ADMITTING DIAGNOSES: 1. . L1 compression fracture, L4 transverse process fracture 2. . Parkinson's disease 3. . Anxiety disorder DISCHARGE DIAGNOSES: 1. . L1 compression fracture, L4 transverse process fracture 2. . Parkinson's disease 3. . Anxiety disorder COMPLICATIONS/CHIEF COMPLAINT: Intractable Back Pain. HISTORY OF PRESENT ILLNESS: . 71-year-old female with past medical history of Parkinson's disease, type 2 diabetes mellitus, hypothyroidism, GERD, depression, dyslipidemia, hypertension , anxiety, and bipolar disorder presented to the ER on 12/22/16 with a chief complaint of back pain. Patient stated that her back pain started apparently 5 days ago after sustaining a fall at home. She states that she was doing laundry in her bathroom and because of her tremors from Parkinson's disease she lost her balance when turning around and fell back into a wooden chair. The patient was admitted to the hospital service for further evaluation and management MRI studies revealed an acute L1 compression fracture with very minimal height loss, and L4 Transverse process fracture right. Orthopedic/spinal surgery was consulted, and recommended a [place] brace for stabilization and progress mobilization. In addition, pain management also saw the patient in consultation and started the patient on a pain medication regimen. The patient was evaluated by physical therapy and short-term rehabilitation was recommended. At this time the patient will be transferred to the [facility] for rehabilitative services. I've advised the patient to follow-up with orthopedic surgery in 2-3 weeks. In addition, I have also asked patient follow- up with her primary care physician within one to 2 weeks. DISCHARGE MEDICATIONS: Please see below. ALLERGIES: Please see below. PHYSICAL EXAMINATION ON DISCHARGE: VITAL SIGNS: Please see below. General Exam: Positive: Alert, Cooperative, No Acute Distress ENT Exam: Positive: Atraumatic, Mucous membr. moist/pink Neck Exam: Negative: JVD Chest Exam: Positive: Clear to auscultation, Normal air movement Heart Exam: Positive: Rate Normal, Normal S1, Normal S2 Abdomen Exam: Positive: Soft Extremity Exam: Negative: Tenderness, Swelling Neuro Exam: Positive: Sensation Intact Psych Exam: Positive: Oriented x 3 LABORATORY DATA: Please see below. IMAGING: MR LUMBAR SPINE WITHOUT CONTRAST: HISTORY: Vertebral body fracture. COMPARISON: CT 12/22/2016. There are six lumbar-type vertebral bodies. Decreased signal intensity on T2-weighted images is present in the lumbar intervertebral discs. The L3-4 through L5-6 intervertebral discs are decreased in height. These findings are consistent with disc degeneration. There is no disc bulge or herniation at the L1-2 through L4-5 intervertebral discs. There is hypertrophy of the posterior articulating facets at the L4-5 level. The nerves exit the neural foramina without compression. A diffuse disc bulge is present at the L5-6 level. There is hypertrophy of the ligamenta flava and posterior articulating facets. These findings produce minimal central canal stenosis. The L5 nerves exit the neural foramina without compression. A diffuse disc bulge is present at the L6-S1 level. There is no thecal sac or nerve compression. There is hypertrophy of the posterior articulating facets. The L6 nerves exit the neural foramina without compression. Heterogeneous increased signal intensity on T2-weighted images is present in the L1 vertebral body. A curvilinear area of decreased signal intensity is present in the superior endplate region. These findings are consistent with an acute fracture. There is very minimal loss of vertebral body height. There is no subluxation. IMPRESSION: 1. Minimal central canal stenosis at the L5-6 level secondary to disc bulge, ligamentous and facet hypertrophy. 2. Diffuse disc bulge at the L6-S1 level without thecal sac or nerve compression. 3. Acute L1 compression fracture with very minimal height loss. PROGNOSIS: Medically stable ACTIVITY: As tolerated. DIET: . 2 g low sodium diet, carb consistent diet DISCHARGE PLAN: DISPOSITION: [facility]. DISCHARGE INSTRUCTIONS: 1. . Follow-up in 2-3 weeks with ortho/spinal surgery 2. . Follow-up with primary care physician in 1-2 weeks 3. . Return to the ER if symptoms return or persist DISCHARGE CONDITION: Stable. TIME SPENT ON DISCHARGE: Greater than 30 minutes. Vital Signs/I&Os Vital Signs Date Time Temp Pulse Resp B/P (MAP) Pulse Ox O2 Delivery O2 Flow Rate FiO2 01/04/17 12:50 22 01/04/17 10:50 Nasal Cannula 1.0 01/04/17 06:00 97.6 90 119/75 (90) 99 01/02/17 06:55 94 I&O- Last 24 Hours up to 6 AM 01/04/17 05:59 Intake Total 540 ml Output Total 1550 ml Balance -1010 ml Laboratory Data Labs 24H Laboratory Tests 2 01/03/17 16:43: Bedside Glucose (Misc Panel) 134H 01/03/17 20:44: Bedside Glucose (Misc Panel) 148H 01/04/17 05:46: Anion Gap 7L, Glomerular Filtration Rate > 60.0, Blood Urea Nitrogen 12, Creatinine 0.76, Sodium Level 143, Potassium Level 4.7, Chloride Level 106, Carbon Dioxide Level 30, Calcium Level 9.0 01/04/17 11:52: Bedside Glucose (Misc Panel) 182H CBC/BMP Laboratory Tests 01/04/17 05:46 Red Blood Count 4.06, Mean Corpuscular Volume 96.2 H, Mean Corpuscular Hemoglobin 30.2, Mean Corpuscular Hemoglobin Concent 31.4 L, Red Cell Distribution Width 13.9, Calcium Level 9.0 FSBS Laboratory Tests Test 01/03/17 16:43 01/03/17 20:44 01/04/17 11:52 Range/Units Bedside Glucose (Misc Panel) 134 148 182 80-115 MG/DL Discharge Medications Scheduled (Viibryd) 10 Mg Tab, 10 MG PO DAILY, (Reported) Aspirin (Aspir-81) 81 Mg Tab, 81 MG PO QHS, (Reported) Clonazepam (Clonazepam) 0.5 Mg Tab, 0.5 MG PO BID, (Reported) Diphenhydramine Hcl (Benadryl Allergy) 25 Mg Tab, 50 MG PO QHS, (Reported) Divalproex Sodium (Divalproex Sodium Dr) 250 Mg Tab, 500 MG PO BID, (Reported) Glipizide (Glipizide Xl) 5 Mg Tab, 5 MG PO DAILY, (Reported) Lamotrigine (Lamotrigine) 100 Mg Tab, 100 MG PO DAILY, (Reported) Lansoprazole (Prevacid) 30 Mg Cap, 30 MG PO QHS, (Reported) SOMETIMES WILL TAKE 2 Leflunomide (Leflunomide) 20 Mg Tab, 20 MG PO DAILY, (Reported) Levothyroxine Sodium (Synthroid) 75 Mcg Tab, 75 MCG PO DAILY, (Reported) Melatonin (Melatonin) 10 Mg Cap, 10 MG PO QHS, (Reported) Metformin Hydrochloride (Metformin HCl) 500 Mg Tab, 1,000 MG PO BIDWM, (Reported ) Metoprolol Succinate (Metoprolol Succinate ER) 25 Mg Tab, 12.5 MG PO QHS, ( Reported) Multivitamins *[facility] STOCKED* (Thera M Plus *[facility] STOCKED*) 1 Tab Tab, 1 TAB PO QHS , (Reported) Rosuvastatin Calcium (Crestor) 20 Mg Tab, 20 MG PO DAILY, (Reported) Tolterodine Tartrate (Tolterodine Tartrate ER) 4 Mg Cap, 4 MG PO BID, (Reported) Trazodone HCl (Trazodone HCl) 50 Mg Tab, 25 MG PO QHS, (Reported) Vitamin D (Vitamin D) 2,000 Unit Cap, 2,000 UNIT PO DAILY, (Reported) Scheduled PRN Oxycodone/Acetaminophen (Percocet 5MG/325MG Tablet) 1 Tab Tab, 1 TAB PO Q4HP PRN for MILD/MODERATE PAIN (PS 1-7) Oxycodone/Acetaminophen (Percocet 5MG/325MG Tablet) 1 Tab Tab, 2 TAB PO Q4HP PRN for SEVERE PAIN (PS 8-10) Allergies Coded Allergies: Aspirin (Verified Allergy, Unknown, 12/05/12) Clindamycin (Unverified Allergy, Unknown, SWOLLEN TONGUE AND EYES, 12/22/16 ) Codeine (Verified Allergy, Unknown, 12/17/16) ED NURSE VERIFIED THAT PT HAS RECEIVED PERCOCET BEFORE W/O ISSUE - 12/17/16 Conjugated Estrogens (Unverified Allergy, Unknown, PAIN IN LOWER EXTREMETIES, 12/22/16) Dexamethasone (Unverified Allergy, Unknown, EXTREME ITCHING , 12/22/16) Nystatin (Unverified Allergy, Unknown, GIVES THRUSH ON TONGUE , 12/22/16) Ondansetron (Unverified Allergy, Unknown, ITCHING AND HIVES, 12/22/16) Penicillins (Verified Allergy, Unknown, 12/05/12) Penicillins Cross Reactors (Verified Allergy, Unknown, 12/05/12) Propoxyphene (Verified Allergy, Unknown, 12/05/12) Sulfamethoxazole (Unverified Allergy, Unknown, ITCHING, 4/22/17) Tobramycin (Unverified Allergy, Unknown, EXTREME ITCHING , 12/22/16) Tramadol (Unverified Allergy, Unknown, EXTREME ITCHING , 12/22/16) SKY HARRIS MD January 04, 2017 15:52
== END 2017-01-04 12:58 | DRG 552 ==
LOC: EDBD 09:04 → M ED 10:21 → M ED INP 16:46 → M MS5PR 17:45
PROVIDERS: ADMIT Internal Medicine; ATTEND Internal Medicine
DX: S32.019A Unspecified fracture of first lumbar vertebra, initial encounter for closed fracture (principal); S22.089A Unspecified fracture of T11-T12 vertebra, initial encounter for closed fracture; S32.049A Unspecified fracture of fourth lumbar vertebra, initial encounter for closed fracture; I10 Essential (primary) hypertension; E11.9 Type 2 diabetes mellitus without complications; G20 Parkinson's disease; F41.9 Anxiety disorder, unspecified; E03.9 Hypothyroidism, unspecified; N32.81 Overactive bladder; F31.9 Bipolar disorder, unspecified; K59.00 Constipation, unspecified; M46.96 Unspecified inflammatory spondylopathy, lumbar region; G47.00 Insomnia, unspecified; E55.9 Vitamin D deficiency, unspecified; G47.33 Obstructive sleep apnea (adult) (pediatric); K21.9 Gastro-esophageal reflux disease without esophagitis; L40.50 Arthropathic psoriasis, unspecified; E78.5 Hyperlipidemia, unspecified; W01.190D Fall on same level from slipping, tripping and stumbling with subsequent striking against furniture, subsequent encounter; Y92.012 Bathroom of single-family (private) house as the place of occurrence of the external cause; Y93.E2 Activity, laundry; Y99.9 Unspecified external cause status; Z79.82 Long term (current) use of aspirin; Z79.84 Long term (current) use of oral hypoglycemic drugs; Z79.899 Other long term (current) drug therapy; Z88.6 Allergy status to analgesic agent; Z88.1 Allergy status to other antibiotic agents; Z88.5 Allergy status to narcotic agent; Z88.0 Allergy status to penicillin; Z88.8 Allergy status to other drugs, medicaments and biological substances; Z88.2 Allergy status to sulfonamides; Z91.19 Patient's noncompliance with other medical treatment and regimen; Z82.8 Family history of other disabilities and chronic diseases leading to disablement, not elsewhere classified; Z82.49 Family history of ischemic heart disease and other diseases of the circulatory system

== ENCOUNTER → 2017-01-10 | Outpatient (REF) ==
[~2017-01-10] MED LIST changes: +CLON0.5T PO; +DIVA250T PO; +GLIP-162 PO; +KLON0.5T; +LAMO100T; +LAMO100T PO; +LAMO25TA2; +METO25TA74 PO; +PERCOCET PO; +PREV30CA11 PO; +TOLT1CAP; +TOLT1CAP PO; +TRAZ25TA PO; +VIIB10TA; +VIIB10TA PO; +VITMTA PO
[2017-01-10 09:37] LABS: VITAMIN B12 LEVEL 509 PG/ML (247-911)
[2017-01-10 09:53] LABS: ALBUMIN 3.3 GM/DL (3.2-5.2); ALBUMIN/GLOBULIN RATIO 0.97 (1.00-1.93); ALKALINE PHOSPHATASE 92 U/L (45-117); ALT/SGPT 21 U/L (12-78); ANION GAP 9 MEQ/L (8-16); AST/SGOT 17 U/L (15-37); BILIRUBIN,TOTAL 0.3 MG/DL (0.2-1.0); BLOOD UREA NITROGEN 15 MG/DL (7-18); CALCIUM LEVEL 8.5 MG/DL (8.8-10.2); CARBON DIOXIDE LEVEL 24 MEQ/L (21-32); CHLORIDE LEVEL 110 MEQ/L (98-107); CREATININE FOR GFR 0.77 MG/DL (0.55-1.02); GLOMERULAR FILTRATION RATE > 60.0 (>45); GLUCOSE, FASTING 111 MG/DL (80-110); POTASSIUM SERUM 4.6 MEQ/L (3.5-5.1); SODIUM LEVEL 143 MEQ/L (136-145); TOTAL PROTEIN 6.7 GM/DL (6.4-8.2)
== END ==
LOC: SKLAB3 08:00
PROVIDERS: ATTEND Internal Medicine
DX: Z51.81 Encounter for therapeutic drug level monitoring (principal); E11.9 Type 2 diabetes mellitus without complications; E03.9 Hypothyroidism, unspecified

== ENCOUNTER 2017-03-21 09:49 | Emergency (ER) | payer BC, MEDICARE, OTHER ==
[~2017-03-21] VITALS: Ht 165.1 cm; Wt 70.3 kg
[~2017-03-21 09:49] MED LIST changes: +BENA25TA10 PO; -BENA25TA9 PO; +COLC1TAB14 PO; -COLC1TAB5 PO; -LEVA750T PO; +LEVA750T7 PO; -METF500T PO; +METF500T13 PO; +METO1TAB32 PO; -METO25TA74 PO; +PERC5TAB12 PO; -PERC5TAB6 PO; +PREV1CAP PO; -PREV30CA11 PO
[2017-03-21] MEDS ORDERED: DETR4CAP PO (10:18)
[2017-03-21] MEDS ORDERED: NS 500 ML IV ONE (10:30)
[2017-03-21 10:58] LABS: BASO % 0.6 % (0.0-1.0); EOS # 0.4 K/mm3 (0.0-0.50); EOS % 4.6 % (0.0-3.0); LARGE UNSTAINED CELL # 0.2 K/mm3 (0.0-0.4); LYMPH # 2.8 K/mm3 (1.5-4.5); LYMPH % 33.2 % (24.0-44.0); MEAN CORPUSCULAR HEMOGLOBIN 30.9 pg (27.0-33.0); MEAN CORPUSCULAR VOLUME 93.6 fl (80.0-96.0); MONO # 0.6 K/mm3 (0.0-0.8); NEUTROPHILS # 4.2 K/mm3 (1.8-7.7); NEUTROPHILS % 52.7 % (36.0-66.0); PLATELET COUNT, AUTOMATED 288 k/mm3 (150-450); RED CELL DISTRIBUTION WIDTH 13.6 % (11.5-14.5)
[2017-03-21 11:21] LABS: ALBUMIN/GLOBULIN RATIO 1.14 (1.00-1.93); ALKALINE PHOSPHATASE 40 U/L (45-117); ALT/SGPT 19 U/L (12-78); ANION GAP 6 MEQ/L (8-16); AST/SGOT 12 U/L (15-37); BILIRUBIN,DIRECT 0.1 MG/DL (0.0-0.2); BILIRUBIN,TOTAL 0.3 MG/DL (0.2-1.0); BLOOD UREA NITROGEN 14 MG/DL (7-18); CALCIUM LEVEL 9.7 MG/DL (8.8-10.2); CARBON DIOXIDE LEVEL 29 MEQ/L (21-32); CHLORIDE LEVEL 109 MEQ/L (98-107); CREATININE FOR GFR 0.78 MG/DL (0.55-1.02); GLOMERULAR FILTRATION RATE > 60.0 (>45); GLUCOSE, FASTING 129 MG/DL (80-110); POTASSIUM SERUM 4.5 MEQ/L (3.5-5.1); SODIUM LEVEL 144 MEQ/L (136-145); TOTAL PROTEIN 7.5 GM/DL (6.4-8.2)
[2017-03-21] MEDS ORDERED: ISOVUE-370 76% 100ML VIAL (Q9967) As Ordered ONE (11:28)
--- NOTE | 2017-03-21 12:23 | REP ---
CT abdomen and pelvis with IV contrast: Comparison is 12/24/2016. The visualized lung núñez are unremarkable. The hepatic parenchyma, gallbladder, pancreas and spleen are normal size and unremarkable. The adrenals and kidneys are unremarkable. The abdominal aorta is unremarkable. There is no bowel distension or obstruction. There is no ascites or adenopathy. There is wall thickening of the sigmoid colon as an interval change compatible with colitis in the appropriate clinical context. Pelvis: The appendix is not identified. There is no pericecal inflammation or abscess. There is no adenopathy or ascites. The uterus, adnexa and urinary bladder are unremarkable. Impression: There are findings compatible with colitis of the sigmoid colon in the appropriate clinical context. No ascites or adenopathy. No bowel distension or obstruction. No diverticulosis or diverticulitis. Signed by Willie Redd MD 03/21/2017 12:14 P
[2017-03-21] MEDS ORDERED: HYDR-3713 PO (12:31)
[2017-03-21 12:48] VITALS: BP 140/76
== END 2017-03-21 12:51 | disposition home or self-care (01) ==
LOC: M ED 09:49
DX: K52.9 Noninfective gastroenteritis and colitis, unspecified (principal); R41.3 Other amnesia; G20 Parkinson's disease; E78.00 Pure hypercholesterolemia, unspecified; G47.30 Sleep apnea, unspecified; J90 Pleural effusion, not elsewhere classified; K21.9 Gastro-esophageal reflux disease without esophagitis; E11.9 Type 2 diabetes mellitus without complications; E03.9 Hypothyroidism, unspecified; M54.9 Dorsalgia, unspecified; F41.9 Anxiety disorder, unspecified; F32.9 Major depressive disorder, single episode, unspecified; Z79.82 Long term (current) use of aspirin; Z79.84 Long term (current) use of oral hypoglycemic drugs; Z79.899 Other long term (current) drug therapy; Z88.1 Allergy status to other antibiotic agents; Z88.5 Allergy status to narcotic agent; Z88.8 Allergy status to other drugs, medicaments and biological substances; Z88.0 Allergy status to penicillin; Z88.2 Allergy status to sulfonamides
CPT/HCPCS: 74177; 80048; 80076; 81001; 83690; 83735; 85025; 96360; 96361; 99283; Q9967

== ENCOUNTER → 2017-03-22 | Outpatient (REF) | payer MEDICARE ==
[~2017-03-22] MED LIST changes: +DETR4CAP PO; +HYDR-3713 PO
== END ==
LOC: M LAB REF 10:17
PROVIDERS: ATTEND Physician Assistant Surgical
DX: K52.9 Noninfective gastroenteritis and colitis, unspecified (principal)

== ENCOUNTER → 2017-04-26 | Outpatient (CLI) | payer MEDICARE ==
--- NOTE | 2017-04-26 13:49 | REP ---
MR LUMBAR SPINE WITHOUT CONTRAST: HISTORY: Back pain. COMPARISON: 12/23/2016 There are six lumbar type vertebral bodies. Decreased signal intensity on T2-weighted images is present in the lumbar intervertebral discs. The L3-4 through L5-6 intervertebral discs are decreased in height consistent with disc degeneration. There is no disc bulge or herniation at the L2-3 through L4-5 level. The nerves exit the neural foramina without compression. A diffuse disc bulge is present at the L5-6 level. There is hypertrophy of the ligamenta flava and posterior articulating facets. These findings produce minimal central canal stenosis. The L5 nerves exit the neural foramina without compression. A diffuse disc bulge is present at the L6-S1 level. There is no thecal sac or nerve compression. There is hypertrophy of the posterior articulating facets. The L6 nerves exit the neural foramina without compression. There is an old compression fracture of the L1 vertebral body with mild height loss and very minimal retropulsion. The conus medullaris is normal in appearance terminating at the level of the L1-2 intervertebral disc. Normal signal intensity is present in the lumbar vertebral bodies. IMPRESSION: 1. Minimal central canal stenosis at the L5-6 level secondary to disc bulge, ligamentous and facet hypertrophy. 2. Diffuse disc bulge at the L6-S1 level without thecal sac or nerve compression. 3. Old L1 compression fracture with mild height loss and very minimal retropulsion. Signed by David Zarco MD 04/26/2017 01:55 P
== END ==
LOC: M PLARAD 11:22
PROVIDERS: ATTEND Physician Assistant
DX: M51.36 Other intervertebral disc degeneration, lumbar region (principal); M51.26 Other intervertebral disc displacement, lumbar region

== ENCOUNTER → 2017-05-01 | Outpatient (REF) | payer MEDICARE, MEDICAID ==
[2017-05-01 18:31] LABS: ALBUMIN 3.7 GM/DL (3.2-5.2); ALKALINE PHOSPHATASE 33 U/L (45-117); ALT/SGPT 19 U/L (12-78); AST/SGOT 10 U/L (15-37); BLOOD UREA NITROGEN 11 MG/DL (7-18); CREATININE FOR GFR 0.83 MG/DL (0.55-1.02); GLOMERULAR FILTRATION RATE > 60.0 (>45)
[2017-05-01 18:55] LABS: BASO % 0.4 % (0.0-1.0); EOS # 0.3 K/mm3 (0.0-0.50); EOS % 4.1 % (0.0-3.0); LYMPH # 2.8 K/mm3 (1.5-4.5); LYMPH % 39.3 % (24.0-44.0); MEAN CORPUSCULAR HEMOGLOBIN 30.4 pg (27.0-33.0); MEAN CORPUSCULAR HGB CONC 32.3 g/dl (32.0-36.5); MONO # 0.5 K/mm3 (0.0-0.8); MONO % 6.6 % (0.0-5.0); NEUTROPHILS # 3.3 K/mm3 (1.8-7.7); NEUTROPHILS % 47.2 % (36.0-66.0); RED CELL DISTRIBUTION WIDTH 12.9 % (11.5-14.5); WHITE BLOOD COUNT 7.1 K/mm3 (4.0-10.0)
== END ==
LOC: M LABDRAW1 15:20
PROVIDERS: ATTEND Physician Assistant
DX: L40.59 Other psoriatic arthropathy (principal); Z79.899 Other long term (current) drug therapy

== ENCOUNTER → 2017-08-02 | Outpatient (REF) | payer MEDICARE ==
[2017-08-02 17:02] LABS: BASO # 0.1 10^3/uL (0.0-0.2); BASO % 0.8 % (0.0-1.0); EOS # 0.4 10^3/uL (0.0-0.50); EOS % 5.1 % (0.0-3.0); IMMATURE GRANULOCYTE % 0.5 % (0-0); LYMPH # 3.1 10^3/uL (1.5-4.5); LYMPH % 40.3 % (24.0-44.0); MEAN CORPUSCULAR HGB CONC 31.7 g/dl (32.0-36.5); MEAN CORPUSCULAR VOLUME 94.6 fl (80.0-96.0); MONO # 0.8 10^3/uL (0.0-0.8); MONO % 10.3 % (0.0-5.0); NEUTROPHILS # 3.3 10^3/uL (1.8-7.7); PLATELET COUNT, AUTOMATED 257 10^3/uL (150-450); RED CELL DISTRIBUTION WIDTH 14.6 % (11.5-14.5); WHITE BLOOD COUNT 7.6 10^3/uL (4.0-10.0)
[2017-08-02 17:03] LABS: ALBUMIN 3.5 GM/DL (3.2-5.2); ALKALINE PHOSPHATASE 32 U/L (45-117); ALT/SGPT 23 U/L (12-78); AST/SGOT 13 U/L (7-37); BLOOD UREA NITROGEN 14 MG/DL (7-18); CREATININE FOR GFR 0.75 MG/DL (0.55-1.02); GLOMERULAR FILTRATION RATE > 60.0 (>45)
[2017-08-02 17:51] LABS: ERYTHROCYTE SEDIMENTATION RATE 11 mm/hr (0-30)
== END ==
LOC: M LABDRAW1 14:25
PROVIDERS: ATTEND Physician Assistant Medical
DX: Z79.899 Other long term (current) drug therapy (principal); L40.59 Other psoriatic arthropathy

== ENCOUNTER → 2017-11-29 | Outpatient (CLI) | payer MEDICARE ==
[~2017-11-29] MED LIST changes: -/DULO30CA OR; -/MOXI40TA OR; -ADVI200T PO; -ASPI81TA3 OR; -ASPI81TA85 PO; -BENA25TA10 PO; -CALC12502 OR; -CALCIUM VITAMIN D PO; -CINN500C9 PO; -CITRTAB18 PO; -CLON0.5T PO; -COLC1TAB14 PO; -CRES20TA OR; -CRES20TA PO; -DEPA250T2 PO; -DEPA250T3 OR; -DETR4CAP PO; -DIVA250T PO; +E-Z-GAS II EFFERVESCENT PACKET (SODIUM BICARB./CITRIC ACID/SIMETHICONE) As Ordered; +E-Z-HD 98% w/w 340GM SUSP BTL As Ordered; +E-Z-PAQUE 96% w/w SUSP 176GM BTL As Ordered; -GLIP-162 PO; -GLIP5TAB8 PO; -HYDR-3713 PO; -IBAN150T5 PO; -IBUP80TA PO; -Januvia PO; -KLON0.5T; -LAMO100T; -LAMO100T PO; -LAMO25TA2; -LANS30CA PO; -LEFL1TAB4 PO; -LEVA750T7 PO; -LEVO75TA4 PO; -LITH300T2 PO; -MELA10CA PO; -MET; -METF500T13 PO; -METO1TAB32 PO; -MULTTAB6 PO; -Metformin; -PANT40TA2 PO; -PERC5TAB12 PO; -PERCOCET PO; -PRED50TA PO; -PREV1CAP PO; -PREVACID PO; -SINE25TA6 PO; -SYNT50TA PO; -THYROX; -TOLT1CAP; -TOLT1CAP PO; -TRAZ25TA PO; -TYLE500T78 PO; -Thyroxine PO; -VENL75TA2 PO; -VICO5TAB OR; -VIIB10TA; -VIIB10TA PO; -VITA200016 PO; -VITA500T OR; -VITMTA PO; -Vesicare PO
== END ==
LOC: M RAD 08:38
DX: R13.10 Dysphagia, unspecified (principal)
CPT/HCPCS: 74220

== ENCOUNTER → 2017-12-12 | Day surgery (SDC) | payer MEDICARE ==
[~2017-12-12] MED LIST changes: -E-Z-GAS II EFFERVESCENT PACKET (SODIUM BICARB./CITRIC ACID/SIMETHICONE) As Ordered; -E-Z-HD 98% w/w 340GM SUSP BTL As Ordered; -E-Z-PAQUE 96% w/w SUSP 176GM BTL As Ordered; +PROPOFOL 200 MG/20 ML VIAL As Ordered
[2017-12-12] MEDS: NS 1,000 ML IV (12:09)
== END | disposition home or self-care (01) ==
LOC: M OPP 11:53
DX: R10.13 Epigastric pain (principal); R13.10 Dysphagia, unspecified; R11.0 Nausea; K22.8 Other specified diseases of esophagus; K29.70 Gastritis, unspecified, without bleeding; Z86.79 Personal history of other diseases of the circulatory system; E11.9 Type 2 diabetes mellitus without complications; E03.9 Hypothyroidism, unspecified; L40.50 Arthropathic psoriasis, unspecified; M19.90 Unspecified osteoarthritis, unspecified site; F41.9 Anxiety disorder, unspecified; F32.9 Major depressive disorder, single episode, unspecified; G20 Parkinson's disease; G47.30 Sleep apnea, unspecified; Z88.1 Allergy status to other antibiotic agents; Z88.5 Allergy status to narcotic agent; Z88.8 Allergy status to other drugs, medicaments and biological substances; Z88.0 Allergy status to penicillin; Z88.2 Allergy status to sulfonamides; Z79.82 Long term (current) use of aspirin; Z79.899 Other long term (current) drug therapy; Z79.84 Long term (current) use of oral hypoglycemic drugs; Z80.3 Family history of malignant neoplasm of breast; Z80.0 Family history of malignant neoplasm of digestive organs
CPT/HCPCS: 43239

== ENCOUNTER → 2017-12-27 | Outpatient (REF) | payer MEDICARE | LOC: M LAB REF 17:44 | DX: R19.7 Diarrhea, unspecified (principal) | CPT/HCPCS: 87493 ==

== ENCOUNTER → 2018-01-07 | Outpatient (REF) | payer MEDICARE ==
[2018-01-07 18:11] LABS: ANION GAP 6 MEQ/L (8-16); BLOOD UREA NITROGEN 11 MG/DL (7-18); CALCIUM LEVEL 9.2 MG/DL (8.8-10.2); CARBON DIOXIDE LEVEL 26 MEQ/L (21-32); CHLORIDE LEVEL 110 MEQ/L (98-107); CREATININE FOR GFR 0.95 MG/DL (0.55-1.30); FREE T4 0.75 NG/DL (0.76-1.46); GLOMERULAR FILTRATION RATE > 60.0 (>39); GLUCOSE, FASTING 124 MG/DL (70-100); POTASSIUM SERUM 4.6 MEQ/L (3.5-5.1); SODIUM LEVEL 142 MEQ/L (136-145)
[2018-01-07 18:13] LABS: BASO # 0.1 10^3/uL (0.0-0.2); BASO % 0.7 % (0.0-1.0); EOS # 0.6 10^3/uL (0.0-0.50); EOS % 6.7 % (0.0-3.0); HEMOGLOBIN 11.6 g/dl (12.0-15.5); IMMATURE GRANULOCYTE % 0.5 % (0-3.0); LYMPH # 2.8 10^3/uL (1.5-4.5); LYMPH % 32.5 % (24.0-44.0); MEAN CORPUSCULAR HGB CONC 30.5 g/dl (32.0-36.5); MEAN CORPUSCULAR VOLUME 91.8 fl (80.0-96.0); MONO # 0.9 10^3/uL (0.0-0.8); MONO % 10.6 % (0.0-5.0); NEUTROPHILS # 4.2 10^3/uL (1.8-7.7); PLATELET COUNT, AUTOMATED 293 10^3/uL (150-450); RED BLOOD COUNT 4.14 10^6/uL (4.00-5.40); RED CELL DISTRIBUTION WIDTH 15.8 % (11.5-14.5); WHITE BLOOD COUNT 8.6 10^3/uL (4.0-10.0)
[2018-01-09 14:15] LABS: TISSUE TRANSGLUTAMINASE IgA <2 U/mL (0-3)
== END ==
LOC: M LABDRAW1 17:01
DX: R19.7 Diarrhea, unspecified (principal)
CPT/HCPCS: 84443

== ENCOUNTER 2018-01-16 07:26 | Day surgery (SDC) | payer MEDICARE ==
[2018-01-16] MEDS: NS 1,000 ML IV (07:30)
[2018-01-16] MEDS ORDERED: PROPOFOL 200 MG/20 ML VIAL As Ordered ×2 (08:03)
== END 2018-01-16 09:54 | disposition home or self-care (01) ==
LOC: M OPP 07:26
DX: R19.7 Diarrhea, unspecified (principal); E78.5 Hyperlipidemia, unspecified; Z86.79 Personal history of other diseases of the circulatory system; E11.9 Type 2 diabetes mellitus without complications; E03.9 Hypothyroidism, unspecified; R13.10 Dysphagia, unspecified; K58.9 Irritable bowel syndrome, unspecified; R10.9 Unspecified abdominal pain; L40.50 Arthropathic psoriasis, unspecified; Z87.81 Personal history of (healed) traumatic fracture; F41.9 Anxiety disorder, unspecified; F32.9 Major depressive disorder, single episode, unspecified; G20 Parkinson's disease; Z78.0 Asymptomatic menopausal state; G47.30 Sleep apnea, unspecified; Z88.1 Allergy status to other antibiotic agents; Z88.5 Allergy status to narcotic agent; Z88.8 Allergy status to other drugs, medicaments and biological substances; Z88.0 Allergy status to penicillin; Z88.2 Allergy status to sulfonamides; Z79.82 Long term (current) use of aspirin; Z79.84 Long term (current) use of oral hypoglycemic drugs; Z79.899 Other long term (current) drug therapy; Z80.3 Family history of malignant neoplasm of breast; Z80.0 Family history of malignant neoplasm of digestive organs
CPT/HCPCS: 45380

== ENCOUNTER → 2018-01-17 | Outpatient (REF) | payer MEDICARE ==
[2018-01-17 18:40] LABS: BACTERIA, URINE AUTO NEGATIVE (NEGATIVE); RBC, URINE AUTO 0 /HPF (0-3); SQUAMOUS EPITHELIAL CELL UR AU 0 /HPF (0-6); WBC, URINE AUTO 1 /HPF (0-3)
== END ==
LOC: M SMT 17:02
DX: N39.41 Urge incontinence (principal)
CPT/HCPCS: 81015

== ENCOUNTER → 2018-06-17 | Outpatient (REF) | payer MEDICARE ==
[2018-06-17 17:40] LABS: BACTERIA, URINE AUTO NEGATIVE (NEGATIVE); MUCUS, URINE SMALL (NEGATIVE); RBC, URINE AUTO 0 /HPF (0-3); SQUAMOUS EPITHELIAL CELL UR AU 1 /HPF (0-6); WBC, URINE AUTO 3 /HPF (0-3)
== END ==
LOC: M SMT 17:16
DX: N39.41 Urge incontinence (principal)
CPT/HCPCS: 81015

== ENCOUNTER → 2018-10-21 | Outpatient (REF) | payer MEDICARE ==
[~2018-10-21] MED LIST changes: +/DULO30CA OR; +/MOXI40TA OR; +ADVI200T PO; +ASPI81TA3 OR; +ASPI81TA85 PO; +BENA25TA10 PO; +CALC12502 OR; +CALCIUM VITAMIN D PO; +CINN500C9 PO; +CITRTAB18 PO; +CLON0.5T8 PO; +COLC1TAB14 PO; +CRES20TA OR; +CRES20TA PO; +DEPA250T2 PO; +DEPA250T3 OR; +DEPA250T32 PO; +DETR4CAP PO; +DIVA250T67 PO; +GLIP-162 PO; +GLIP5TAB8 PO; +HYDR-3713 PO; +IBAN150T6 PO; +IBUP80TA PO; +Januvia PO; +KLON0.5T; +LAMO100T; +LAMO100T PO; +LAMO25TA4; +LANS30CA PO; +LEFL1TAB4 PO; +LEVA750T7 PO; +LEVO75TA4 PO; +LITH300T2 PO; +MELA10CA PO; +MET; +METF500T13 PO; +METO1TAB32 PO; +MULTTAB6 PO; +Metformin; +OMEP40CA2 PO; +PANT40TA3 PO; +PERC5TAB12 PO; +PERCOCET PO; +PRED50TA PO; +PREV1CAP PO; +PREVACID PO; -PROPOFOL 200 MG/20 ML VIAL As Ordered; +QUET1TAB7 PO; +SINE25TA6 PO; +SYNT50TA PO; +THYROX; +TOLT4CAP3; +TOLT4CAP3 PO; +TRAZ25TA PO; +TYLE500T78 PO; +Thyroxine PO; +VENL75TA2 PO; +VICO5TAB OR; +VIIB10TA; +VIIB10TA PO; +VITA200016 PO; +VITA500T OR; +VITMTA PO; +Vesicare PO
[2018-10-21 20:06] LABS: APPEARANCE, URINE HAZY (CLEAR); BACTERIA, URINE AUTO NEGATIVE (NEGATIVE); BILIRUBIN, URINE AUTO NEGATIVE (NEGATIVE); BLOOD, URINE BLOOD NEGATIVE (NEGATIVE); COLOR, URINE YELLOW (YELLOW); GLUCOSE, URINE (UA) AUTO 3+ mg/dL (NEGATIVE); KETONE, URINE AUTO TRACE mg/dL (NEGATIVE); LEUKOCYTE ESTERASE, URINE AUTO 2+ (NEGATIVE); MUCUS, URINE SMALL (NEGATIVE); NITRITE, URINE AUTO NEGATIVE (NEGATIVE); PROTEIN, URINE AUTO NEGATIVE (NEGATIVE); RBC, URINE AUTO 1 /HPF (0-3); SQUAMOUS EPITHELIAL CELL UR AU 1 /HPF (0-6); UROBILINOGEN, URINE AUTO 0.2 mg/dL (0.0-2.0); WBC, URINE AUTO 10 /HPF (0-3)
== END ==
LOC: M SMT 17:15
PROVIDERS: ATTEND Nurse Practitioner Women's Health
DX: N89.8 Other specified noninflammatory disorders of vagina (principal)

== ENCOUNTER → 2019-01-30 | Outpatient (REF) | payer MEDICARE ==
[~2019-01-30] MED LIST changes: -/DULO30CA OR; -/MOXI40TA OR; +AVEL1TAB2 OR; -CRES20TA PO; +CRES20TA2 PO; +CYMB1CAP5 OR; +TRAZ1TAB11 PO; -TRAZ25TA PO
[2019-01-30 14:03] LABS: BACTERIA, URINE AUTO NEGATIVE (NEGATIVE); RBC, URINE AUTO 1 /HPF (0-3); SQUAMOUS EPITHELIAL CELL UR AU 1 /HPF (0-6); WBC, URINE AUTO 2 /HPF (0-3)
== END ==
LOC: M SMT 13:30
PROVIDERS: ATTEND Specialist
DX: N39.41 Urge incontinence (principal)

== ENCOUNTER → 2019-09-11 | Outpatient (CLI) | payer MEDICARE ==
[~2019-09-11] MED LIST changes: +CLON0.5T2 PO; -CLON0.5T8 PO; -LAMO100T; -LAMO100T PO; +LAMO100T3; +LAMO100T3 PO; -OMEP40CA2 PO; +OMEP40CA97 PO
--- NOTE | 2019-09-11 16:45 | REP ---
INDICATION: Low back pain PROCEDURE: MRI lumbar spine. Sagittal T1, T2 and STIR images obtained. Axial T1 and T2-weighted images obtained. COMPARISON STUDIES: The study is compared to a prior study from 04/26/2017 FINDINGS: There is evidence of a chronic compression deformity at L1, not significantly changed from previous. There is [id number] multilevel degenerative disc disease loss of disc height and disc desiccation seen diffusely throughout the lumbar spine. Vertebral heights are well preserved. No malalignments. At the level of compression fracture there is focal kyphosis and mild impingement of the lower lumbar cord. No evidence of cord compression. At the remaining levels, no limiting canal or foraminal stenosis. On the STIR images, no significant STIR signal abnormality to suggest soft tissue or ligamentous injury. IMPRESSION: Chronic compression deformity of L1 and minor additional degenerative changes. No significant change from the study comparison study 04/26/2017. Electronically Signed by Raúl Cruz MD 09/11/2019 04:36 P
== END ==
LOC: M PLARAD 13:33
PROVIDERS: ATTEND Orthopaedic Surgery
DX: S32.010A Wedge compression fracture of first lumbar vertebra, initial encounter for closed fracture (principal); M51.36 Other intervertebral disc degeneration, lumbar region; X58.XXXA Exposure to other specified factors, initial encounter

== ENCOUNTER → 2019-09-30 | Outpatient (CLI) | payer MEDICARE ==
--- NOTE | 2019-09-30 18:10 | REPMRS ---
Patient History No clinical breast exam in past year. 3D TOMOSYNTHESIS WAS PERFORMED. The [facility] lifetime risk for breast cancer is 4.2%. Digital Woman Screen Mammo: September 30, 2019 - Exam #: [id number] Bilateral CC and MLO view(s) were taken. Technologist: Lupe Nieves, Technologist No prior studies available for comparison. FINDINGS: There are scattered fibroglandular densities. There is no evidence of cancer on this mammogram. Assessment: BI-RADS/ACR category 2 mammogram. Benign Findings. Recommendation Routine screening mammogram of both breasts in 1 year (for women over age 40). This mammogram was interpreted with the aid of an FDA-approved computer-aided dectection system. Electronically Signed By: Willie Naidu MD 09/30/19 [id number]
== END ==
LOC: M WHC 12:52
PROVIDERS: ATTEND Internal Medicine
DX: Z12.31 Encounter for screening mammogram for malignant neoplasm of breast (principal)

== ENCOUNTER 2019-10-21 23:58 | Emergency (ER) | payer MEDICARE ==
[~2019-10-21] VITALS: Ht 165.1 cm; Wt 69.1 kg
[2019-10-21 23:59] VITALS: BP 138/88
[2019-10-22] MEDS ORDERED: KETOROLAC 60 MG/2 ML VIAL (J1885) IM ONE (02:15)
--- NOTE | 2019-10-22 02:24 | REPVR ---
PROCEDURE INFORMATION: Exam: CT Maxillofacial Without Contrast Exam date and time: 10/22/2019 2:01 AM Age: 74 years old Clinical indication: Face pain; Additional info: R mandibular pain TECHNIQUE: Imaging protocol: Computed tomography images of the face without contrast. Radiation optimization: All CT scans at this facility use at least one of these dose optimization techniques: automated exposure control; mA and/or kV adjustment per patient size (includes targeted exams where dose is matched to clinical indication); or iterative reconstruction. COMPARISON: No relevant prior studies available. FINDINGS: Orbits: Orbits are normal. Globes are unremarkable. Sinuses: Normal. No air-fluid levels. Bones/joints: [id number] temporomandibular degenerative joint disease. Soft tissues: Unremarkable. IMPRESSION: No acute abnormality. Electronically signed by: Cristi Negron On 10/22/2019 02:23:45 AM
[2019-10-22] MEDS ORDERED: KETO10TAB PO (03:59)
== END 2019-10-22 04:13 | disposition home or self-care (01) ==
LOC: M ED 23:58
DX: G51.9 Disorder of facial nerve, unspecified (principal); G20 Parkinson's disease; F41.9 Anxiety disorder, unspecified; F33.9 Major depressive disorder, recurrent, unspecified; Z88.0 Allergy status to penicillin; Z88.1 Allergy status to other antibiotic agents; Z88.2 Allergy status to sulfonamides; Z88.5 Allergy status to narcotic agent; Z88.8 Allergy status to other drugs, medicaments and biological substances; Z79.82 Long term (current) use of aspirin; Z79.84 Long term (current) use of oral hypoglycemic drugs; Z79.890 Hormone replacement therapy; Z79.899 Other long term (current) drug therapy
CPT/HCPCS: 70486; 96372; 99282; J1885

== ENCOUNTER 2019-11-17 06:55 | Outpatient (CLI) | payer MEDICARE ==
[~2019-11-17 06:55] MED LIST changes: +GLUC1TAB6 PO; +KETO10TAB PO; +LAMI1TAB7 PO; +VITA500079 PO; +ZOFR4TAB16 PO; +[UNRECOGNIZED DRUG - OTHER]
[2019-11-17] MEDS ORDERED: propofoL 200 MG/20 ML VIAL ONE (06:56)
[2019-11-17] MEDS ORDERED: MIDAZOLAM INJ 2 MG/2 ML VIAL (J2250) As Ordered ONE (08:09)
[2019-11-17] MEDS ORDERED: ACETAMINOPHEN 500 MG TAB PO ONE (09:15)
[2019-11-17] MEDS ORDERED: LR 1,000 ML IV SCH (09:15)
[2019-11-17] MEDS ORDERED: IBUPROFEN 400 MG TAB As Ordered ONE (09:27)
[2019-11-17] MEDS ORDERED: IBUPROFEN 400 MG TAB PO PRN (09:45)
[2019-11-17 10:05] VITALS: BP 120/76
--- NOTE | 2019-11-17 10:35 | REPVR ---
PROCEDURE INFORMATION: Exam: MR Head Without Contrast Exam date and time: 11/17/2019 6:58 AM Age: 74 years old Clinical indication: Other: Facial pain TECHNIQUE: Imaging protocol: MR of the head without contrast. COMPARISON: MRI-Brain without Contrast 11/07/2015 4:45 PM FINDINGS: Brain: There is no extra-axial collection or intra-axial mass. Moderate diffuse volume loss is within the range of normal for patient age. There is increased T2/FLAIR hyperintensity within the periventricular and subcortical white matter, nonspecific but typically small-vessel ischemia in this age group. This appears more pronounced in the interval. There is no diffusion restriction. Ventricles: Diffuse prominence of the ventricular system is commensurate with volume loss. Bones/joints: Unremarkable. Soft tissues: Unremarkable. Sinuses: Normal as visualized. No acute sinusitis. Mastoid air cells: Normal as visualized. No mastoid effusion. Orbits: Unremarkable. IMPRESSION: No acute findings. Chronic changes. Electronically signed by: Allegra Worthington On 11/17/2019 10:35:20 AM
== END 2019-11-17 10:30 | disposition home or self-care (01) ==
LOC: M SDC 06:55
PROVIDERS: ATTEND Psychiatry & Neurology Neurology
DX: G50.1 Atypical facial pain (principal)
CPT/HCPCS: 70551; 99156; 99157; J2250

== ENCOUNTER → 2019-11-27 | Outpatient (REF) | payer MEDICARE ==
[2019-11-27 15:41] LABS: BASO # 0.1 10^3/uL (0.0-0.2); EOS # 0.3 10^3/uL (0.0-0.5); EOS % 4.2 % (0.0-3.0); HEMATOCRIT 43.1 % (36.0-47.0); HEMOGLOBIN 13.4 g/dl (12.0-15.5); LYMPH # 2.6 10^3/uL (1.5-5.0); MEAN CORPUSCULAR HEMOGLOBIN 29.1 pg (27.0-33.0); MEAN CORPUSCULAR HGB CONC 31.1 g/dl (32.0-36.5); MEAN CORPUSCULAR VOLUME 93.7 fl (80.0-96.0); MONO # 0.6 10^3/uL (0.0-0.8); MONO % 8.5 % (0.0-5.0); NEUTROPHILS # 3.6 10^3/uL (1.5-8.5); NEUTROPHILS % 49.7 % (36.0-66.0); PLATELET COUNT, AUTOMATED 469 10^3/uL (150-450); WHITE BLOOD COUNT 7.2 10^3/uL (4.0-10.0)
[2019-11-27 16:10] LABS: ALBUMIN 2.9 GM/DL (3.2-5.2); ALT/SGPT 17 U/L (12-78); C REACTIVE PROTEIN QUANTITATIV 0.43 MG/DL (0.00-0.30); CREATININE FOR GFR 0.74 MG/DL (0.55-1.30); GLOMERULAR FILTRATION RATE > 60.0 (>39)
[2019-11-27 17:38] LABS: ERYTHROCYTE SEDIMENTATION RATE 69 mm/hr (0-30)
== END ==
LOC: M LABDRAW1 12:00
PROVIDERS: ATTEND Physician Assistant Medical
DX: L40.59 Other psoriatic arthropathy (principal); Z79.899 Other long term (current) drug therapy

== ENCOUNTER → 2019-11-30 | Outpatient (REF) | payer MEDICARE | LOC: M LABNEURO 16:47 | PROVIDERS: ATTEND Physician Assistant Medical | DX: G50.0 Trigeminal neuralgia (principal) ==